=== PATIENT | female | born 1925 | race Caucasian/White ===

== ENCOUNTER → 2016-12-11 | Outpatient (CLI) | payer MEDICARE, OTHER ==
[~2016-12-11] VITALS: Ht 160 cm; Wt 75.0 kg
[2016-12-11] VITALS (11 sets, daily range): BP systolic 113–138; BP diastolic 52–70; PULSE 63–93; RESP 16; TEMP 97.1–98.1; O2SAT 92–99; Ht 160 cm; Wt 75.0 kg
[~2016-12-11] MED LIST: AMIO200T7 PO; AMLO10TA2 PO; AMLO5TAB2 PO; ANTI1CAP2 PO; APIX2.5T PO; ASPI-725 PO; ASPI-914 PO; CALC-52 PO; CHLO25TA2 PO; CLOP75TA PO; FOLI0.8T PO; IRON DEXTRAN 100mg/2ml INJECTION IV ONE; IRON DEXTRAN IV ONE; LINA5TAB PO; METF-47 PO; METO-275 PO; MULT-934 PO; MULT1TAB69 PO; NITR0.4T SL; NORMAL SALINE 500 ML IV SCH; NORMAL SALINE IV ONE; OMEG1CAP17 PO; OMEP40CA52 PO; PRAV40TA3 PO; RIVA1TAB; RIVA20TA PO; SUCR1TAB43 PO; TRAZ-170 PO; VIT1CAPS21 PO; [UNRECOGNIZED DRUG - CODE] PO
--- NOTE | 2016-12-11 10:00 | NUR ---
IV IRON CONSULT: Dx: Chronic Anemia: Will give TDI (Total Dose Infusion) over 4 hours. Actual body weight = 75kg Hgb Level = 10.7 g/dL Calculated Dosing weight = 52 kg Total dose needed: 1,300 mg (26 mL) Will give test dose of 25mg IV push over 30 seconds. Watch VS q 15 minutes x 1 hr. (watching for anaphylaxis, respiratory distress, hives.) If no reaction will give full dose in NS 500ml TRA 125ml/hr. Watch VS q 1 hr during infusion. Thank you.
== END ==
LOC: INF.THER 08:50
PROVIDERS: ATTEND Internal Medicine
DX: D50.9 Iron deficiency anemia, unspecified (principal)
CPT/HCPCS: 96365; 96366; 96375; J1750

== ENCOUNTER 2016-12-19 06:29 | Day surgery (SDC) | payer MEDICARE, OTHER ==
[2016-12-19] VITALS (17 sets, daily range): BP systolic 114–155; BP diastolic 54–67; PULSE 65–79; RESP 13–20; TEMP 97–97.9; O2SAT 91–100; Ht 166.4 cm; Wt 73.2 kg
[~2016-12-19] VITALS: Ht 166.4 cm; Wt 73.2 kg
[~2016-12-19 06:29] MED LIST changes: -AMIO200T7 PO; -AMLO10TA2 PO; -APIX2.5T PO; -ASPI-725 PO; -ASPI-914 PO; -CALC-52 PO; -CLOP75TA PO; -FOLI0.8T PO; -IRON DEXTRAN 100mg/2ml INJECTION IV ONE; -IRON DEXTRAN IV ONE; -MULT1TAB69 PO; -NITR0.4T SL; -NORMAL SALINE 500 ML IV SCH; -NORMAL SALINE IV ONE; -RIVA1TAB; -VIT1CAPS21 PO; -[UNRECOGNIZED DRUG - CODE] PO
--- OUTSIDE RECORDS SUMMARY | 2016-12-19 06:32 | XMS REPORT | Continuity of Care Document ---
Author Author [facility] Organization [facility] Address Unknown Phone Unavailable Support Name Relationship Address Phone SONIDO SEWELL DO Caregiver [facility] [address] [place] [phone] WILLIAM DESHPANDE Next Of Kin [address] [place], [place] [address] Insurance Providers Payer Name Policy Number Subscriber Name Relationship Medicare [id number] Ursula Perez 20 Self [place] [id number] Ursula Perez Self Advance Directives Directive Response Recorded Date/Time Ordered Resuscitation Status Full Code, unverified 08/24/14 10:13am Resuscitation Documents on File No 08/24/14 10:12am Problems No known problems or medical conditions. Medications Medication Dose Route Sig Days/Qty Instructions Order Date Discontinued Date Status Multivitamins 1 Tab PO DAILY 11/05/09 Active Prednisone 2 Mg PO DAILY 09/11/08 11/05/09 Discontinued Zolpidem Tartrate 5 Mg PO BEDTIME 11/05/09 12/19/11 Discontinued [Blood Pressure] 0.5 Tab PO DAILY 11/05/09 09/19/11 Discontinued Metformin Hcl 1,000 Mg PO TWICE A DAY 11/05/09 Active Calcium Carbonate 600 Mg PO TWICE A DAY 02/19/11 09/19/11 Discontinued Telmisartan 20 Mg PO DAILY 02/19/11 09/19/11 Discontinued Acetaminophen/Dp-Hydram Hcl 1 Tab PO BEDTIME 2 Qty 02/19/11 09/19/11 Discontinued Oseltamivir Phosphate 75 Mg PO TWICE A DAY 09/19/11 12/19/11 Discontinued Benzonatate 100 Mg PO NEEDED 09/19/11 12/19/11 Discontinued Aspirin 81 Mg PO DAILY 12/19/11 Active Sucralfate 1 G PO BEDTIME 11/26/12 Active Amlodipine Besylate 10 Mg PO DAILY 90 Qty 08/24/14 Active Omeprazole 40 Mg PO DAILY 90 Qty 08/24/14 Active [place]-3 Acid Ethyl Esters 2 Cap PO TWICE A DAY 340 Qty 08/24/14 Active Antiox#10/Om3/Dha/Epa/Lut/Zeax 1 Cap PO DAILY 08/24/14 Active Pravastatin Sodium 40 Mg PO BEDTIME 90 Qty 08/24/14 Active Social History Social History Problem Response Recorded Date/Time Chewing Tobacco Status No 11/26/2012 9:18am Hx Substance Use No 08/25/2014 7:24am Hx Alcohol Use No 08/25/2014 7:24am Has the pt used tobacco in the last 12 months No 08/25/2014 7:24am Query Response Start Date Stop Date Smoking Status Never smoker Hospital Discharge Instructions No hospital discharge instructions. Plan of Care No plan of care. Functional Status No functional status results. Allergies, Adverse Reactions, Alerts Allergen Type Severity Reaction Status Last Updated oxycodone HCl Adverse Reaction Intermediate ABDOMINAL PAIN Active 09/19/11 losartan potassium Allergy Unknown Active 02/19/11 Sulfa (Sulfonamide Antibiotics) Allergy Intermediate HIVES Active 09/11/08 Lisinopril Adverse Reaction Unknown COUGH Active 08/24/14 Morphine Allergy Intermediate red and hives all over Active 11/26/12 Aspirin Adverse Reaction Intermediate UPSETS STOMACH Active 09/11/08 Tetracycline Adverse Reaction Intermediate terrible pain in stomach Active 11/26/12 Sulfamethoxazole Allergy Intermediate hives Active 11/26/12 Trimethoprim Allergy Unknown Active 02/19/11 Simvastatin Allergy Unknown MYALGIA Active 08/24/14 Atorvastatin Allergy Unknown MYALGIA Active 08/24/14 Immunizations Name Given Type Hx Influenza Vaccination Y MAY 2014 Historical Hx Pneumococcal Vaccination Y -2009 Historical Hx Influenza Vaccination Y MAY 2014 Historical Vital Signs Acute Vital Signs Vital Response Date/Time Temperature (Fahrenheit) 97.0 deg F (96.8 - 99.1) Temperature (Calculated Celsius) 36.25724 degrees C (36.0 - 37.3) Temperature Source Temporal Pulse Rate (adult) 76 bpm (60 - 100) Respiratory Rate 16 breaths/min (10 - 20) O2 Sat by Pulse Oximetry 95 % (90 - 100) Oxygen Delivery Method Room Air Blood Pressure 149/66 mm Hg Blood Pressure Source Automatic Cuff Height 5 ft 3 in Weight 163 lb Body Mass Index 28.0 kg/m^2 Results Test Source Date Result Interp. Ref. Range Comments Alanine Aminotransferase (ALT/SGPT) November 25, 2012 4:24pm 59 U/L H 9-52 Albumin November 25, 2012 4:24pm 4.5 G/DL N 3.5-5.0 Albumin/Globulin Ratio November 25, 2012 4:24pm 1.4 RATIO N 1.1-2.2 Alkaline Phosphatase November 25, 2012 4:24pm 91 U/L N 38-126 Amylase Level November 25, 2012 4:24pm 68 U/L N 30-110 Anion Gap November 25, 2012 4:24pm 14 MEQ/L N 5-15 Aspartate Amino Transf (AST/SGOT) November 25, 2012 4:24pm 39 U/L H 14-36 BUN/Creatinine Ratio November 25, 2012 4:24pm 26 RATIO N 6-26 Basophils # (Auto) November 25, 2012 4:24pm 0.0 T/MM3 N 0-0.2 Basophils (%) (Auto) November 25, 2012 4:24pm 0.4 % N 0-2 Blood Urea Nitrogen November 25, 2012 4:24pm 21.0 MG/DL H 7-17 Calcium Level November 25, 2012 4:24pm 9.4 MG/DL N 8.4-10.2 Calculated Osmolality November 25, 2012 4:24pm 274 MOSM/KG N 261-280 Carbon Dioxide Level November 25, 2012 4:24pm 27 MEQ/L N 22-30 Chloride Level November 25, 2012 4:24pm 98 MEQ/L N 98-107 Creatinine November 25, 2012 4:24pm 0.8 MG/DL N 0.7-1.2 Eosinophils # (Auto) November 25, 2012 4:24pm 0.2 T/MM3 N 0-0.5 Eosinophils # (Manual) September 20, 2011 4:30am 0.1 T/MM3 N 0-0.5 Eosinophils % (Manual) September 20, 2011 4:30am 1.0 % N 0-4 Eosinophils (%) (Auto) November 25, 2012 4:24pm 1.8 % N 0-4 Globulin November 25, 2012 4:24pm 3.3 G/DL N 2.4-3.6 Glomerular Filtration Rate Calc November 25, 2012 4:24pm 68 - Glucometer August 25, 2014 7:16am 170 mg/dL H 65-110 Glucose Level November 25, 2012 4:24pm 157 MG/DL H 65-110 Hematocrit November 25, 2012 4:24pm 44.5 % N 36-46 Hemoglobin November 25, 2012 4:24pm 14.7 GM/DL N 12-16 Immature Granulocyte # (Auto) November 25, 2012 4:24pm 0.01 T/MM3 N 0.00- 0.03 Immature Granulocyte % (Auto) November 25, 2012 4:24pm 0.1 % N 0.0-0.5 Influenza Type A Antigen September 17, 2011 2:26pm Positive - This test can not distinguish influenza A virus subtypes,e.g., seasonal influenza A and novel influenza A (H1N1). Influenza Type B Antigen September 17, 2011 2:26pm Negative - Negative for Flu B protein antigen. Assay sensitivity isbetween 65-83%. A negative result does not exclude influenza virus infection. "Influenza FA" may be ordered if clinical presentation warrants confirmatory testing. Lab Scanned Report November 25, 2012 9:57pm LAB TEST FORM REQUEST [id number] - Lipase November 25, 2012 4:24pm 90 U/L N 23-300 Lymphocytes # (Auto) November 25, 2012 4:24pm 1.2 T/MM3 N 1-4.8 Lymphocytes # (Manual) September 20, 2011 4:30am 3.6 T/MM3 N 1-4.8 Lymphocytes % (Manual) September 20, 2011 4:30am 64.0 % H 23-45 Lymphocytes (%) (Auto) November 25, 2012 4:24pm 12.8 % L 23-45 Magnesium Level September 19, 2011 2:10pm 1.8 MG/DL N 1.6-2.3 Mean Corpuscular Hemoglobin November 25, 2012 4:24pm 29.8 UUG N 26-34 Mean Corpuscular Hemoglobin Concent November 25, 2012 4:24pm 33.0 GM/DL N 31-37 Mean Corpuscular Volume November 25, 2012 4:24pm 90.3 UM3 N 80-100 Mean Platelet Volume November 25, 2012 4:24pm 9.8 UM3 N 9.4-12.4 Monocytes # (Auto) November 25, 2012 4:24pm 0.5 T/MM3 N 0-0.8 Monocytes # (Manual) September 20, 2011 4:30am 0.3 T/MM3 N 0-0.8 Monocytes % (Manual) September 20, 2011 4:30am 5.0 % N 0-9.0 Monocytes (%) (Auto) November 25, 2012 4:24pm 5.0 % N 0-9.0 Neutrophils # (Auto) November 25, 2012 4:24pm 7.4 T/MM3 N 1.8-7.7 Neutrophils # (Manual) September 20, 2011 4:30am 1.6 T/MM3 L 1.8-7.7 Neutrophils % (Manual) September 20, 2011 4:30am 29.0 % L 33-66 Neutrophils (%) (Auto) November 25, 2012 4:24pm 79.9 % H 33-66 Plasma Cells September 20, 2011 4:30am 0.1 T/MM3 - Platelet Count November 25, 2012 4:24pm 263 T/MM3 N 130-400 Potassium Level November 25, 2012 4:24pm 4.1 MEQ/L N 3.6-5 Prealbumin September 19, 2011 2:10pm 18.0 MG/DL N 17.6-36.0 RDW Standard Deviation November 25, 2012 4:24pm 40.8 FL N 36.9-50.2 Red Blood Count November 25, 2012 4:24pm 4.93 M/MM3 N 4.00-5.20 Sodium Level November 25, 2012 4:24pm 139 MEQ/L N 134-144 Thyroid Stimulating Hormone (TSH) February 19, 2011 2:35pm 0.93 MIU/L N 0.47 -4.68 Total Bilirubin November 25, 2012 4:24pm 0.60 MG/DL N 0.20-1.30 Total Creatine Kinase August 14, 2011 2:13pm 33 U/L N 30-135 Total Protein November 25, 2012 4:24pm 7.8 G/DL N 6.3-8.2 Urine Bilirubin February 19, 2011 1:45pm Negative - Has specimen been collected/obtained? Y Urine Blood February 19, 2011 1:45pm Negative - Has specimen been collected/obtained? Y Urine Collection Type February 19, 2011 1:45pm Voided - Has specimen been collected/obtained? Y Urine Color February 19, 2011 1:45pm Yellow - Has specimen been collected /obtained? Y Urine Glucose (UA) February 19, 2011 1:45pm Negative - Has specimen been collected/obtained? Y Urine Ketones February 19, 2011 1:45pm Negative - Has specimen been collected/obtained? Y Urine Leukocyte Esterase February 19, 2011 1:45pm Negative - Has specimen been collected/obtained? Y Urine Microscopic Not Indicated February 19, 2011 1:45pm Not indicated - Has specimen been collected/obtained? Y Urine Mucus September 11, 2008 12:16pm Present - Has specimen been collected/obtained? Y Urine Nitrite February 19, 2011 1:45pm Negative - Has specimen been collected/obtained? Y Urine Protein February 19, 2011 1:45pm Negative - Has specimen been collected/obtained? Y Urine RBC September 11, 2008 12:16pm 0-1 /HPF - Has specimen been collected/obtained? Y Urine Specific [place] February 19, 2011 1:45pm 1.015 - Has specimen been collected/obtained? Y Urine Turbidity February 19, 2011 1:45pm Clear - Has specimen been collected/obtained? Y Urine Urobilinogen February 19, 2011 1:45pm Normal EU/DL - Has specimen been collected/obtained? Y Urine WBC September 11, 2008 12:16pm 1-3 /HPF - Has specimen been collected/obtained? Y Urine pH February 19, 2011 1:45pm 5.0 - Has specimen been collected/ obtained? Y Vitamin B12 Level February 19, 2011 2:35pm 464 PG/ML N 239-931 White Blood Count November 25, 2012 4:24pm 9.3 T/MM3 N 4.5-11.0 Blood Culture Blood September 19, 2011 2:10pm NO GROWTH AFTER 5 DAYS Gram Stain Finger-Right Ring May 11, 2008 7:23pm Procedures Procedure Status Date Provider(s) Esophagogastroduodenoscopy (EGD) with closed biopsy completed 08/25/14 SONIDO SEWELL DO
[2016-12-19] MEDS ORDERED: LR 1,000 ML IV SCH (07:00)
[2016-12-19] MEDS ORDERED: LIDOCAINE 1% (10mg/ml) 2ml SDV INJ ONE (07:00)
[2016-12-19] MEDS ORDERED: SALINE FLUSH 10ml SYRINGE ONE (08:34)
[2016-12-19] MEDS ORDERED: MIDAZOLAM 5mg/5ml INJECTION ONE ×2 (08:34→08:59)
[2016-12-19] MEDS ORDERED: FENTANYL 100mcg/2ml INJECTION ONE (08:34)
[2016-12-19] MEDS ORDERED: MIDAZOLAM 5mg/5ml INJECTION IV PRN (08:48)
[2016-12-19] MEDS ORDERED: FENTANYL 100mcg/2ml INJECTION IV PRN (08:50)
[2016-12-19] MEDS ORDERED: GLUCAGON 1 MG INJECTION ONE (09:25)
[2016-12-19] MEDS ORDERED: .STERILE WATER FOR INJECTION 10 ML ONE (09:25)
[2016-12-19] MEDS ORDERED: GLUCAGON 1 MG INJECTION IV PRN (09:30)
--- NOTE | 2016-12-19 13:23 | OPNOTEF ---
DATE OF PROCEDURE: 12/19/2016 PHYSICIAN: Clark Schrader DO PROCEDURE: Colonoscopy. INDICATION FOR PROCEDURE Blood loss anemia. ASA CLASSIFICATION: 2 DESCRIPTION OF PROCEDURE Consent was signed and on the chart. Routine monitoring with ECG, continuous oximetry and noninvasive blood pressure was performed throughout the procedure and found to be within normal limits. IV sedation was performed with a total of 9 mg of Versed and 90 mcg of fentanyl. She was also given one amp of glucagon. Prior to the procedure the patient was brought to the endoscopy lab where a brief review of her medical history and physical was performed. The procedure was described to her and she was agreeable to continue. All questions were answered. She was given IV sedation and placed in the left lateral decubitus position. A digital rectal exam was normal. The colonoscope was introduced through the anal verge and advanced to the cecum. Upon reaching the cecum careful examination of the mucosa was performed. Right across from the ileocecal valve there was a polyp that was biopsied and then removed with snare. Also, in the ascending colon another polyp was removed. A proximal transverse colon polyp was biopsied and removed with snare and also another was removed at the mid transverse colon. The remainder of her exam was unremarkable except for diverticulosis in the descending and sigmoid colon. No evidence of active bleeding. She tolerated the procedure well. There were no complications. IMPRESSION Polyps removed from area across from the ileocecal valve, ascending colon, proximal transverse colon and transverse colon. She also had diverticulosis at the descending and sigmoid colon. RECOMMENDATION 1. Review the pathology report. 2. Consider EGD or video capsule endoscopy of the small bowel. MTDD
[2016-12-19] MEDS ORDERED: AMLO10TA2 PO (20:28)
== END 2016-12-19 10:22 | disposition home or self-care (01) ==
LOC: NSC 06:29
PROVIDERS: ATTEND Internal Medicine
DX: D12.3 Benign neoplasm of transverse colon (principal); D12.0 Benign neoplasm of cecum; K57.30 Diverticulosis of large intestine without perforation or abscess without bleeding; D50.0 Iron deficiency anemia secondary to blood loss (chronic); R14.0 Abdominal distension (gaseous); K59.00 Constipation, unspecified; E11.9 Type 2 diabetes mellitus without complications; K21.9 Gastro-esophageal reflux disease without esophagitis; M48.06 Spinal stenosis, lumbar region; E78.4 Other hyperlipidemia; Z79.84 Long term (current) use of oral hypoglycemic drugs; Z79.02 Long term (current) use of antithrombotics/antiplatelets; Z79.899 Other long term (current) drug therapy
CPT/HCPCS: 45385; 82948; J1610; J2250; J3010; J7120

== ENCOUNTER 2016-12-19 20:04 | Emergency (ER) | payer MEDICARE, OTHER ==
[~2016-12-19] VITALS: Ht 165.1 cm; Wt 68.2 kg
[2016-12-19 20:04] VITALS: Ht 165.1 cm; Wt 68.2 kg
--- OUTSIDE RECORDS SUMMARY | 2016-12-19 20:08 | XMS REPORT | Continuity of Care Document ---
Author Author [facility] Organization [facility] Address Unknown Phone Unavailable Support Name Relationship Address Phone SONIDO SEWELL DO Caregiver [facility] [address] [place] [phone] WILLIAM DESHPANDE Next Of Kin [address] [place], [place] [id number] Insurance Providers Payer Name Policy Number Subscriber Name Relationship Medicare [id number] Ursula Perez 20 Self [place] [id number] Ursula Perez Self Advance Directives Directive Response [...] Mg PO DAILY 90 Qty 08/24/14 Active [place]-3 Acid Ethyl Esters 2 Cap PO TWICE [...] F (96.8 - 99.1) Temperature (Calculated Celsius) 36.09515 degrees C (36.0 - 37.3) Temperature Source [...] 25, 2012 9:57pm LAB TEST FORM REQUEST [id number] - Lipase November 25, 2012 4:24pm 90 [...] Has specimen been collected/obtained? Y Urine Specific [place] February 19, 2011 1:45pm 1.015 - Has [...]
--- OUTSIDE RECORDS SUMMARY | 2016-12-19 20:08 | XMS REPORT | Continuity of Care Document ---
Author Author [facility] Organization [facility] Address Unknown Phone Unavailable Support Name Relationship Address Phone SONIDO SEWELL DO Caregiver [address] [place] [address] Unavailable SONIDO SEWELL DO Caregiver [address] [place] [address] Unavailable WILLIAM DESHPANDE Next Of Kin [address] [id number] Insurance Providers Guarantor Ursula Hwang E Address [address] [place] [address] Email [email or web address] Payer [place] Policy Number [id number] Subscriber's Name Ursula Hwang Relationship 18 Self Group Number [facility] Payer Medicare Policy Number [id number] Subscriber's Name Ursula Hwang Relationship 18 Self Advance Directives Directive Response Recorded Date/Time Ordered Resuscitation Status Full Code, unverified 12/18/16 2:52pm Resuscitation Documents on File No 12/19/16 7:08am DPOA for Healthcare Only No 12/19/16 7:08am Living Will No 12/19/16 7:08am Problems No problem information available. Medications Current Home Medications Medication Dose Units Route Directions Days Qty Instructions Start Date Amlodipine Besylate 5 Mg Tablet 5 Mg Oral Daily 12/18/16 Antiox#10/Om3/Dha/Epa/Lut/Zeax (I-Caps With Lutein-[place] 3 Sfg) 1 Each Capsule 1 Cap Oral Daily 08/24/14 Chlorthalidone 25 Mg Tablet 1 Tab Oral Give With Breakfast BEST TAKEN WITH FOOD. 12/11/16 Linagliptin (Tradjenta) 5 Mg Tablet 1 Tab Oral Daily 12/18/16 Metformin Hcl (Glucophage) 500 Mg Tablet 1,000 Mg Oral Twice A Day 11/05/09 Metoprolol Succinate 25 Mg Tab.er.24h 25 Mg Oral Daily 12/11/16 Multivitamins (Multi-Day Vitamin) 1 Tab Tablet 1 Tab Oral Daily 11/05/09 [place]-3 Acid Ethyl Esters (Lovaza) 1 Gm Capsule 2 Cap Oral Twice A Day 12/18/16 Omeprazole 40 Mg Capsule.dr 40 Mg Oral Daily 08/24/14 Pravastatin Sodium 40 Mg Tablet 40 Mg Oral Bedtime 90 08/24/14 Rivaroxaban (Xarelto) 20 Mg Tablet 1 Tab Oral Bedtime 30 Tablet 09/28 Sucralfate (Carafate) 1 G Tablet 1 G Oral Bedtime 11/26/12 Trazodone Hcl 50 Mg Tablet 50 Mg Oral Bedtime Take 1 tablet, by mouth, one time a day (at BEDTIME). 12/18/16 Past Home Medications Medication Directions Ordered Status Acetaminophen/Dp-Hydram Hcl (Tylenol Pm Ex-Str Caplet) 1 Tab Tablet, 1 Tab Oral Bedtime 02/19/11 Discontinued Amlodipine Besylate 10 Mg Tablet, 10 Mg Oral Daily 08/24/14 Discontinued Benzonatate 100 Mg Capsule, 100 Mg Oral As Needed 09/19/11 Discontinued Blood Pressure , 0.5 Tab Oral Daily 11/05/09 Discontinued Calcium Carbonate (Calcium) 600 Mg Tablet, 600 Mg Oral Twice A Day 02/19/11 Discontinued Oseltamivir Phosphate (Tamiflu) 75 Mg Capsule, 75 Mg Oral Twice A Day Discontinued Prednisone 1 Mg Tablet, 2 Mg Oral Daily 09/11/08 Discontinued Telmisartan (Micardis) 20 Mg Tablet, 20 Mg Oral Daily 02/19/11 Discontinued Zolpidem Tartrate (Ambien) 5 Mg Tablet, 5 Mg Oral Bedtime 11/05/09 Discontinued Social History Social History Problem Response Recorded Date/Time Onset Date Status Reason for Hospitalization COLONOSCOPY 12/19/2016 9:49am Not Applicable Not Applicable Chewing Tobacco Status No 11/26/2012 9:18am Not Applicable Not Applicable Hx Substance Use No 08/25/2014 7:24am Not Applicable Not Applicable Hx Alcohol Use No 08/25/2014 7:24am Not Applicable Not Applicable Has the pt used tobacco in the last 12 months No 08/25/2014 7:24am Not Applicable Not Applicable Query Response Start Date Stop Date Smoking Status Never smoker Hospital Discharge Instructions Instructions: Care Instructions: I was in the hospital because (patient own words): "COLONOSCOPY" Plan of Care Discharge Date 12/19/16 10:22am Instructions/Education Provided [facility] Services Prescriptions See Medication Section Functional Status Query Response Date Recorded Ability to complete ADL's impeded by No change December 19, 2016 7:08am Allergies, Adverse Reactions, Alerts Allergen Type Severity Reaction Status Last Updated oxycodone HCl Adverse Reaction Intermediate ABDOMINAL PAIN Active 12/19/16 losartan potassium Allergy Unknown Active 12/19/16 Sulfa (Sulfonamide Antibiotics) Allergy Intermediate HIVES Active 12/19/16 Lisinopril Adverse Reaction Unknown COUGH Active 12/19/16 Morphine Allergy Intermediate red and hives all over Active 12/19/16 Aspirin Adverse Reaction Intermediate UPSETS STOMACH Active 12/19/16 Tetracycline Adverse Reaction Intermediate terrible pain in stomach Active 12/19/16 Sulfamethoxazole Allergy Intermediate hives Active 12/19/16 Trimethoprim Allergy Unknown Active 12/19/16 Simvastatin Allergy Unknown MYALGIA Active 12/19/16 Atorvastatin Allergy Unknown MYALGIA Active 12/19/16 Immunizations Query Response on File Recorded Date/Time Hx Influenza Vaccination Y fall 201512/11/16 11:43am Hx Pneumococcal Vaccination Y fall 201512/11/16 11:43am Hx Influenza Vaccination Y fall 201512/11/16 11:43am Vital Signs Acute Vital Signs Vital Response Date/Time Temperature (Fahrenheit) 97.1 deg F (96.8 - 99.1) 12/19/2016 10:19am Temperature (Calculated Celsius) 36.13383 degrees C (36.0 - 37.3) 12/19/2016 10:19am Temperature Source Temporal 12/19/2016 10:19am Pulse Rate (adult) 70 bpm (60 - 100) 12/19/2016 10:19am Respiratory Rate 13 breaths/min (10 - 20) 12/19/2016 10:19am O2 Sat by Pulse Oximetry 92 % (90 - 100) 12/19/2016 10:19am Oxygen Delivery Method Mask 12/19/2016 8:40am Oxygen Delivery Method Room Air 12/19/2016 10:19am Oxygen Flow Rate 6.00 L/min 12/19/2016 8:40am Blood Pressure 128/56 mm Hg 12/19/2016 10:19am Blood Pressure Source Automatic Cuff 12/19/2016 10:19am Height (Feet) 5 feet 12/19/2016 6:49am Height (Inches) 5.50 inches 12/19/2016 6:49am Weight (Kilograms) 73.200 kg 12/19/2016 6:49am Body Mass Index (BMI) 26.5 12/19/2016 6:49am Results Laboratory Results Test Name Result Units Flags Reference Collection Date/Time Result Date/ Time Comments Glucometer 123 mg/dL H 65-110 12/19/2016 6:45am 12/19/2016 6:49am Procedures Procedure Status Date Provider(s) Colonoscopy with polypectomy and biopsy Completed 12/19/16 SONIDO SEWELL DO Encounters Encounter Location Arrival/Admit Date Discharge/Depart Date Attending Provider Departed [facility] 12/19/16 6:29am 12/19/16 10 :22am SONIDO SEWELL DO [facility] 12/11/16 8:50am SONIDO SEWELL DO
[2016-12-19] MEDS ORDERED: NORMAL SALINE 1,000 ML IV ONE (20:15)
--- OUTSIDE RECORDS SUMMARY | 2016-12-19 20:20 | XMS REPORT | Continuity of Care Document ---
Author Author [facility] Organization [facility] Address Unknown Phone Unavailable Support Name Relationship Address Phone SONIDO SEWELL DO Caregiver [facility] [address] [place] [phone] WILLIAM DESHPANDE Next Of Kin [address] [place], [place] [id number] Insurance Providers Payer Name Policy Number Subscriber Name Relationship Medicare [id number] Ursula Perez 20 Self [place] [id number] Ursula Perez Self Advance Directives Directive Response [...] Mg PO DAILY 90 Qty 08/24/14 Active [place]-3 Acid Ethyl Esters 2 Cap PO TWICE [...] F (96.8 - 99.1) Temperature (Calculated Celsius) 36.70658 degrees C (36.0 - 37.3) Temperature Source [...] 25, 2012 9:57pm LAB TEST FORM REQUEST [id number] - Lipase November 25, 2012 4:24pm 90 [...] Has specimen been collected/obtained? Y Urine Specific [place] February 19, 2011 1:45pm 1.015 - Has [...]
--- NOTE | 2016-12-19 20:21 | ERPDOC ---
Departure Disposition Decision Date: December 19, 2016 Disposition Decision Time: 21:13 Disposition: 01 DISCHARGED HOME, SELF-CARE Impression Impression Impression: Primary Impression: Dehydration Additional Impression: Palpitation Severity: Moderate Condition: Improved Seen By: Physician only Referrals: SONIDO SEWELL DO (Family) Patient Instructions: Dehydration (ED) Problems/Meds/Labs Reviewed?: Yes Medications reviewed and manag: Yes Additional Instructions: Drink at least 2 quarts of fluid daily Return to ER or see Dr. Sewell's office for any worsening Follow up care ordered?: Yes Mental Status: Alert HPI - Cardiac General Stated Complaint: DIZZY Time Seen by Provider: 20:08 Source: patient Exam Limitations: no limitations HPI - Cardiac General Initial Comments Patient had a colonoscopy today, had an extended bowel prep last night, and did well during her colonoscopy today. However when she got home, she began experiencing several episodes of significant dizziness, lightheadedness, and a feeling of fluttering palpitations in her chest. Patient has a history of atrial fibrillation, and is similar symptoms when she has A. fib. Occurred At: home Onset/Timing: Rapid Duration: 6-12 hrs Severity: moderate Activities at Onset/Context: none Nitro Today/Relief: no nitro taken today Aspirin Today: unknown Associated Symptoms: weakness, DENIES: chest pain, cough, diaphoresis, fever/ chills, headaches, loss of appetite, malaise, nausea/vomiting, rash, seizure, shortness of breath, syncope Hx of Similar Symptoms: Yes Allergies: Coded Allergies: Sulfa (Sulfonamide Antibiotics) (Verified Allergy, Intermediate, HIVES, 05/28) morphine (Verified Allergy, Intermediate, red and hives all over, 12/19/16) sulfamethoxazole (Verified Allergy, Intermediate, hives, 12/19/16) atorvastatin (Unverified Allergy, Unknown, MYALGIA, 12/19/16) losartan potassium (Verified Allergy, Unknown, 12/19/16) simvastatin (Unverified Allergy, Unknown, MYALGIA, 12/19/16) trimethoprim (Verified Allergy, Unknown, 12/19/16) aspirin (Verified Adverse Reaction, Intermediate, UPSETS STOMACH, 12/19/16) oxycodone HCl (Verified Adverse Reaction, Intermediate, ABDOMINAL PAIN, 05/28) tetracycline (Verified Adverse Reaction, Intermediate, terrible pain in stomach, 12/19/16) lisinopril (Verified Adverse Reaction, Unknown, COUGH, 12/19/16) Past History Past Medical History Metabolic: diabetes, hypercholesterolemia, hypertension Cardiac: A-fib, CAD GI: ulcers Surgical History General: appendix, gallbladder, tonsils Reproductive/: hysterectomy Vaccines Hx Influenza Vaccination: Yes (fall 2015) Hx Pneumococcal Vaccination: Yes (fall 2015) Social History Smoking Status: Never smoker Does patient use chewing tobac: No Second Hand Exposure: No Substance Use Type: does not use Record Review Pertinent history updated: Yes Review of Systems Constitutional Constitutional: dizziness, fatigue, DENIES: appetite decrease, appetite increase, chills, fever, weakness ENMT Ears: DENIES: pain Hearing: DENIES: hearing loss, tinnitus Balance: DENIES: vertigo Mouth/Throat: DENIES: change in swallowing, change in voice, hoarsness, painful swallowing, sore throat Cardiovascular Cardiac: DENIES: chest pain, dyspnea on exertion Rhythm/Rate: palpitations ("fluttering"), DENIES: irregular beat, tachycardia Vascular: DENIES: pedal edema Pulmonary Respiratory: DENIES: cough, dyspnea, pleuritic chest pain GI Upper Abdomen: DENIES: dysphagia, heartburn/indigestion, nausea, pain, vomiting Lower Abdomen: DENIES: blood in stool, constipation, diarrhea, pain General: DENIES: burning, dysuria, frequency, pain, urgency Musculoskeletal General: DENIES: cramps, joint pain, joint swelling, pain, weakness Integumentary Skin: DENIES: rash, sores Neurological General: DENIES: headache, numbness, tingling, vertigo, weakness Psychiatric Psychiatric: DENIES: anxiety, depression, nervousness Physical Exam General General Nourishment: well nourished, well developed, appears stated age, no acute distress General Body Habitus: well groomed Vitals and Pain First Documented Vital Signs Date Time Temp Pulse Resp B/P Pulse Ox O2 Delivery O2 Flow Rate FiO2 12/19/16 20:04 97.7 90 12 179/74 96 Room Air Weight: Kilograms: Height (feet): 5 Height (inches): 5.50 Triage Pain Scale: RN VS reviewed by Provider: Yes Normal Exams: Head: Normocephalic w/o trauma Eyes: Pupils are PERRLA w/ EOMI, No scleral icterus, irritation, or foreign bodies noted ENMT: No facial trauma, nasal exudates, pharyngeal erythema, or exudates are noted Neck: Full range of motion, without adenopathy, JVD, bruits or thyromegaly Chest/Resp: Clear all mcelroy, with good airflow, and symmetry bilaterally CV: Regular rate and rhythm, without murmur or gallop, Pulses 2+ all extremities, capillary refill, <2 seconds all ext., no pedal edema noted Abdomen: Bowel sounds positive, soft, non-tender, non-distended, no hepatosplenomegaly, masses or bruits noted Lymphatic: No lymphadenopathy, or lymphedema noted Musculoskeletal: No tenderness, or deformity noted, good range of motion, all extremities Integumentary: No rashes, hives, or bruising noted, hair and nails, without abnormality Neurologic: Patient is alert, and oriented, cranial nerves, motor/sensory/ cerebellar, exams w/o gross deficits, to observation Psychiatric: Patient exhibits, appropriate attention, emotion and affect Progress Results/Orders Orders Procedure Category Date Status Time Iv Lock (Ed Only) EDM 12/19/16 Transmitted 20:15 Cbc W/Auto LAB 12/19/16 Complete Diff-Reflex Manual Cmp - Comprehensive LAB 12/19/16 Complete Metabolic Troponin I W LAB 12/19/16 Complete Hemolysis Index EKG EKG 12/19/16 Taken Normal Saline (Normal PHA 12/19/16 Complete Saline Iv) 20:15 Lab Results Laboratory Tests Test 12/19/16 20:27 White Blood Count 9.4T/MM3 Red Blood Count 4.60M/MM3 Hemoglobin 11.3GM/DL Hematocrit 35.8% Mean Corpuscular Volume 77.8UM3 Mean Corpuscular Hemoglobin 24.6UUG Mean Corpuscular Hemoglobin Concent 31.6GM/DL RDW Standard Deviation 48.0FL Platelet Count 346T/MM3 Mean Platelet Volume 10.6UM3 Immature Granulocyte % (Auto) 0.3% Neutrophils (%) (Auto) 57.3% Lymphocytes (%) (Auto) 29.4% Monocytes (%) (Auto) 9.6% Eosinophils (%) (Auto) 2.3% Basophils (%) (Auto) 1.1% Absolute Immature Granulocyte (auto 0.03T/MM3 Absolute Neutrophils (auto) 5.4T/MM3 Absolute Lymphocytes (auto) 2.8T/MM3 Absolute Monocytes (auto) 0.9T/MM3 Absolute Eosinophils (auto) 0.2T/MM3 Absolute Basophils (auto) 0.1T/MM3 Turbidity < 20 Sodium Level 140MEQ/L Potassium Level 3.5MEQ/L Chloride Level 98MEQ/L Carbon Dioxide Level 28MEQ/L Anion Gap 14MEQ/L Blood Urea Nitrogen 17.0MG/DL Creatinine 0.9MG/DL Glomerular Filtration Rate Calc 59 BUN/Creatinine Ratio 19RATIO Glucose Level 152MG/DL Calculated Osmolality 274MOSM/KG Calcium Level 9.9MG/DL Total Bilirubin 0.30MG/DL Icterus Index < 2 Aspartate Amino Transf (AST/SGOT) 47U/L Alanine Aminotransferase (ALT/SGPT) 59U/L Alkaline Phosphatase 102U/L Troponin I < 0.012ng/ml Total Protein 7.4G/DL Albumin 4.3G/DL Globulin 3.1G/DL Albumin/Globulin Ratio 1.4RATIO Chemistry Specimen Hemolysis < 15 Medications Current ED Medications Sodium Chloride (Normal Saline IV) 1,000 ml @ 0 mls/hr Q0M ONCE IV ; Start 05/28 at 20:15; Stop 12/19/16 at 20:16; Status DC Progress Progress EKG shows normal sinus rhythm with a right bundle branch block, no signs of acute ischemia or infarction. CBC - n CMP - n Troponin - n Patient given 1 L normal saline IV fluid bolus - patient feeling much better, no further palpitations or fluttering sensations, and lightheadedness has resolved SONIDO CATALAN MD December 19, 2016 20:21
[2016-12-19] MEDS ORDERED: AMLO10TA2 PO (20:28)
[2016-12-19 20:42] LABS: ALBUMIN 4.3 G/DL (3.5-5.0); ALBUMIN/GLOBULIN RATIO 1.4 RATIO (1.1-2.2); ALKALINE PHOSPHATASE 102 U/L (38-126); ALT (SGPT) 59 U/L (9-52); ANION GAP 14 MEQ/L (5-15); AST (SGOT) 47 U/L (14-36); BUN/CREATININE RATIO 19 RATIO (6-26); CALCIUM 9.9 MG/DL (8.4-10.2); CHLORIDE 98 MEQ/L (98-107); CO2 - CARBON DIOXIDE 28 MEQ/L (22-30); CREATININE 0.9 MG/DL (0.7-1.2); GLOMERULAR FILTRATION RATE 59; GLUCOSE 152 MG/DL (65-110); POTASSIUM 3.5 MEQ/L (3.6-5); SODIUM 140 MEQ/L (134-144); TOTAL PROTEIN 7.4 G/DL (6.3-8.2)
[2016-12-19 20:46] LABS: BASOPHILS # (AUTO) 0.1 T/MM3 (0-0.2); BASOPHILS % (AUTO) 1.1 % (0-2); EOSINOPHILS # (AUTO) 0.2 T/MM3 (0-0.5); EOSINOPHILS % (AUTO) 2.3 % (0-4); HCT - HEMATOCRIT 35.8 % (36-46); HGB - HEMOGLOBIN 11.3 GM/DL (12-16); IMMATURE GRANULOCYTE # (AUTO) 0.03 T/MM3 (0.00-0.03); IMMATURE GRANULOCYTE % (AUTO) 0.3 % (0.0-0.5); LYMPHOCYTES # (AUTO) 2.8 T/MM3 (1-4.8); LYMPHOCYTES % (AUTO) 29.4 % (23-45); MEAN CORPUSCULAR HGB 24.6 UUG (26-34); MEAN CORPUSCULAR HGB CONC(MCHC 31.6 GM/DL (31-37); MEAN CORPUSCULAR VOLUME 77.8 UM3 (80-100); MEAN PLATELET VOLUME 10.6 UM3 (9.4-12.4); MONOCYTES # (AUTO) 0.9 T/MM3 (0-0.8); MONOCYTES % (AUTO) 9.6 % (0-9.0); NEUTROPHILS #(AUTO)-ABSOLUTE 5.4 T/MM3 (1.8-7.7); NEUTROPHILS % (AUTO) 57.3 % (33-66); WBC - WHITE BLOOD COUNT 9.4 T/MM3 (4.5-11.0)
--- NOTE | 2016-12-19 21:08 | NUR ---
STATUS PT STATES "I FEEL MUCH BETTER." PT DENIES DIZZINESS AT PRESENT. PT VISITING WITH FAMILY AT BEDSIDE.
--- NOTE | 2016-12-19 21:10 | NUR ---
DR DR CATALAN AT BEDSIDE.
--- NOTE | 2016-12-19 21:34 | NUR ---
MONITOR REVIEW MONITOR PLACE AT ADMISSION TO ER. NOTED RATE 70'S WITH FREQUENT PVC, COUPLET. FEQUENCY LESSONED STAY INCREASED.
--- NOTE | 2016-12-19 21:37 | NUR ---
DISMISS PT ASSISTED TO PRIVATE VEHICLE VIA WC BY THIS RN.
[2016-12-19 22:01] VITALS: BP 152/66; PULSE 75; RESP 16; TEMP 97.7; O2SAT 94
== END 2016-12-19 21:37 | disposition home or self-care (01) ==
LOC: ED 20:04
DX: E86.0 Dehydration (principal); R00.2 Palpitations; I10 Essential (primary) hypertension; I48.91 Unspecified atrial fibrillation; Z79.01 Long term (current) use of anticoagulants
CPT/HCPCS: 80053; 84484; 85025; 93005

== ENCOUNTER 2016-12-27 11:00 | Inpatient (IN) | payer MEDICARE, OTHER ==
[~2016-12-27] VITALS: Ht 162.6 cm; Wt 71.2 kg
[~2016-12-27 11:00] MED LIST changes: +AMLO10TA2 PO; +ASPI-725 PO; +RIVA1TAB; +[UNRECOGNIZED DRUG - CODE] PO
--- OUTSIDE RECORDS SUMMARY | 2016-12-27 11:04 | XMS REPORT | Continuity of Care Document ---
Author Author [facility] Organization [facility] Address Unknown Phone Unavailable Support Name Relationship Address Phone SONIDO CATALAN MD Caregiver [address] [place] [address] Unavailable SONIDO SEWELL DO Caregiver [address] [place] [address] Unavailable WILLIAM DESHPANDE Next Of Kin [address] [place] [address] Insurance Providers Guarantor Ursula Perez E Address [address] [place] [address] Email [email or web address] Payer [place] Policy Number [id number] Subscriber's Name Ursula Perez Relationship 18 Self Group Number [facility] Payer Medicare Policy Number [id number] Subscriber's Name Ursula Perez Relationship 18 Self Advance Directives Directive Response Recorded Date/Time Advanced Directives Type None 12/19/16 8:04pm Chief Complaint and Reason for Visit Chief Complaint Dizzy Reason for Visit Palpitation Dehydration Problems Past Problems Medical Problem Onset Date Dehydration Unknown Palpitation Unknown Medications Current Home Medications Medication Dose Units Route Directions Days Qty Instructions Start Date Amlodipine Besylate 10 Mg Tablet 5 Mg Oral Daily 12/19/16 Chlorthalidone 25 Mg Tablet 25 Mg Oral Daily 12/11/16 Linagliptin (Tradjenta) 5 Mg Tablet 5 Mg Oral Daily 12/18/16 Metformin Hcl (Glucophage) 500 Mg Tablet 1,000 Mg Oral Twice A Day 11/05/09 Metoprolol Succinate 25 Mg Tab.er.24h 25 Mg Oral Daily 12/11/16 [place]-3 Acid Ethyl Esters (Lovaza) 1 Gm Capsule 2 Cap Oral Twice A Day 12/18/16 Omeprazole 40 Mg Capsule.dr 40 Mg Oral Daily 08/24/14 Pravastatin Sodium 40 Mg Tablet 40 Mg Oral Bedtime 08/24/14 Rivaroxaban (Xarelto) 20 Mg Tablet 20 Mg Oral Bedtime 12/11/16 Sucralfate (Carafate) 1 G Tablet 1 G Oral Bedtime 11/26/12 Trazodone Hcl 50 Mg Tablet 50 Mg Oral Bedtime 12/18/16 Past Home Medications Medication Directions Ordered [...] Problem Response Recorded Date/Time Onset Date Status Chewing Tobacco Status No 11/26/2012 9:18am Not Applicable Not Applicable Hx Substance Use No 12/19/2016 8:32pm Not Applicable Not Applicable Hx Alcohol Use No 12/19/2016 8:32pm Not Applicable Not Applicable Has the pt used tobacco in the last 12 months No 08/25/2014 7:24am Not Applicable Not Applicable Query Response Start Date Stop Date Smoking Status Never smoker Hospital Discharge Instructions No hospital discharge instructions. Plan of Care Discharge Date 12/19/16 9:37pm Disposition 01 DISCHARGED HOME, SELF-CARE Condition at Discharge Improved Instructions/Education Provided Dehydration (ED) Prescriptions See Medication Section Referrals SONIDO SEWELL DO Address: [address] [place] [phone] Additional Instructions/Education Drink at least 2 quarts of fluid daily Return to ER or see Dr. Sewell's office for any worsening Care Plan and Goals Physician Care Plan Problem: Dehydration after her colonoscopy prep Goal: Follow up with primary care provider Instructions: Take medications and follow care plan as discussed/writtenFOLLOW-UP CARE FOR PATIENT WITH NO LOCAL PRIMARY PHYSICIAN Drink at least 2 quarts of fluid daily Return to ER or see Dr. Sewell's office for any worsening The physician you have been referred to is Dr. []. He/She will see you in follow-up if you have problems related to the condition you were seen for in the Emergency or if the Emergency Department physician has requested you be seen in follow-up. The physician has not agreed to assume your care as a permanent part of his/her medical practice. Contact with the above physician's office must be made within 72 hours by 5 p.m. or his/her service will not be provided. We encourage you to establish yourself with a personal physician in the future. Functional Status No functional status results. Allergies, [...] Vital Signs Vital Response Date/Time Temperature (Fahrenheit) 97.7 deg F (96.8 - 99.1) 12/19/2016 10:01pm Temperature (Calculated Celsius) 36.43328 degrees C (36.0 - 37.3) 12/19/2016 10:01pm Temperature Source Temporal 12/19/2016 10:19am Pulse Rate (adult) 75 bpm (60 - 100) 12/19/2016 10:01pm Respiratory Rate 16 breaths/min (10 - 20) 12/19/2016 10:01pm O2 Sat by Pulse Oximetry 94 % (90 - 100) 12/19/2016 10:01pm Oxygen Delivery Method Mask 12/19/2016 8:40am Oxygen Delivery Method Room Air 12/19/2016 10:19am Oxygen Flow Rate 6.00 L/min 12/19/2016 8:40am Blood Pressure 152/66 mm Hg 12/19/2016 10:01pm Blood Pressure Source Automatic Cuff 12/19/2016 10:19am Height (Feet) 5 feet 12/19/2016 8:04pm Height (Inches) 5.00 inches 12/19/2016 8:04pm Weight (Kilograms) 68.200 kg 12/19/2016 8:04pm Body Mass Index (BMI) 25.0 12/19/2016 8:04pm Results Laboratory Results Test Name Result Units Flags Reference Collection Date/Time Result Date/ Time Comments Glucometer 123 mg/dL H 65-110 12/19/2016 6:45am 12/19/2016 6:49am White Blood Count 9.4 T/MM3 4.5-11.0 12/19/2016 8:27pm 12/19/2016 8: 46pm Red Blood Count 4.60 M/MM3 4.00-5.20 12/19/2016 8:27pm 12/19/2016 8: 46pm Hemoglobin 11.3 GM/DL L 12-16 12/19/2016 8:pm 12/19/2016 8:46pm Hematocrit 35.8 % L 36-46 12/19/2016 8:pm 12/19/2016 8:46pm Mean Corpuscular Volume 77.8 UM3 L 80-100 12/19/2016 8:27pm 12/19/2016 8 :46pm Mean Corpuscular Hemoglobin 24.6 UUG L 26-34 12/19/2016 8:pm 2016 8:46pm Mean Corpuscular Hemoglobin Concent 31.6 GM/DL 31-37 12/19/2016 8:pm 12/19/2016 8:46pm RDW Standard Deviation 48.0 FL 36.9-50.2 12/19/2016 8:pm 12/19/2016 8 :46pm Platelet Count 346 T/MM3 130-400 12/19/2016 8:pm 12/19/2016 8:46pm Mean Platelet Volume 10.6 UM3 9.4-12.4 12/19/2016 8:pm 12/19/2016 8: 46pm Neutrophils (%) (Auto) 57.3 % 33-66 12/19/2016 8:12/19/2016 8: 46pm Lymphocytes (%) (Auto) 29.4 % 23-45 12/19/2016 8:12/19/2016 8: 46pm Monocytes (%) (Auto) 9.6 % H 0-9.0 12/19/2016 8:12/19/2016 8:46pm Eosinophils (%) (Auto) 2.3 % 0-4 12/19/2016 8:12/19/2016 8:46pm Basophils (%) (Auto) 1.1 % 0-2 12/19/2016 8:12/19/2016 8:46pm Immature Granulocyte % (Auto) 0.3 % 0.0-0.5 12/19/2016 8:2016 8:46pm Absolute Neutrophils (auto) 5.4 T/MM3 1.8-7.7 12/19/2016 8:2016 8:46pm Absolute Lymphocytes (auto) 2.8 T/MM3 1-4.8 12/19/2016 8:2016 8:46pm Absolute Monocytes (auto) 0.9 T/MM3 H 0-0.8 12/19/2016 8:2016 8:46pm Absolute Eosinophils (auto) 0.2 T/MM3 0-0.5 12/19/2016 8:2016 8:46pm Absolute Basophils (auto) 0.1 T/MM3 0-0.2 12/19/2016 8:12/19/2016 8:46pm Absolute Immature Granulocyte (auto 0.03 T/MM3 0.00-0.03 12/19/2016 8: 12/19/2016 8:46pm Icterus Index < 2 0-7 12/19/2016 8:12/19/2016 8:42pm Chemistry Specimen Hemolysis < 15 0-25 12/19/2016 8:12/19/2016 8 :42pm 0-25: Specimen Exhibited No Hemolysis. Turbidity < 20 0-20 12/19/2016 8:pm 12/19/2016 8:42pm Sodium Level 140 MEQ/L 134-144 12/19/2016 8:12/19/2016 8:42pm Potassium Level 3.5 MEQ/L L 3.6-5 12/19/2016 8:12/19/2016 8:42pm Chloride Level 98 MEQ/L 98-107 12/19/2016 8:12/19/2016 8:42pm Carbon Dioxide Level 28 MEQ/L 22-30 12/19/2016 8:12/19/2016 8: 42pm Anion Gap 14 MEQ/L 5-12/19/2016 8:12/19/2016 8:42pm Blood Urea Nitrogen 17.0 MG/DL 7-12/19/2016 8:12/19/2016 8: 42pm Creatinine 0.9 MG/DL 0.7-1.2 12/19/2016 8:12/19/2016 8:42pm BUN/Creatinine Ratio 19 RATIO 02-0412/19/2016 8:12/19/2016 8:42pm Glomerular Filtration Rate Calc 59 12/19/2016 8:12/19/2016 8: 42pm Glucose Level 152 MG/DL H 65-110 12/19/2016 8:12/19/2016 8:42pm Calculated Osmolality 274 MOSM/KG 261-280 12/19/2016 8:12/19/2016 8:42pm Calcium Level 9.9 MG/DL 8.4-10.2 12/19/2016 8:12/19/2016 8:42pm Total Bilirubin 0.30 MG/DL 0.20-1.30 12/19/2016 8:12/19/2016 8: 42pm Alkaline Phosphatase 102 U/L 38-126 12/19/2016 8:12/19/2016 8: 42pm Total Protein 7.4 G/DL 6.3-8.2 12/19/2016 8:12/19/2016 8:42pm Albumin 4.3 G/DL 3.5-5.0 12/19/2016 8:12/19/2016 8:42pm Globulin 3.1 G/DL 2.4-3.6 12/19/2016 8:12/19/2016 8:42pm Albumin/Globulin Ratio 1.4 RATIO 1.1-2.2 12/19/2016 8:27pm 12/19/2016 8 :42pm Aspartate Amino Transf (AST/SGOT) 47 U/L H 14-36 12/19/2016 8:27pm 12/19 8:42pm Alanine Aminotransferase (ALT/SGPT) 59 U/L H 9-52 12/19/2016 8:27pm 05/2017 8:42pm Troponin I < 0.012 ng/ml 0-0.12 12/19/2016 8:27pm 12/19/2016 8:53pm Troponin values with a difference of 55% increase from orginal troponin value represent a true biological DELTA value. (%increase Calc=Orginal Troponin value, divided by subsequent Troponin value, multiplied by 100) Procedures Procedure Status Date Provider(s) Colonoscopy with polypectomy and biopsy Completed 12/19/16 SONIDO SEWELL DO Encounters Encounter Location Arrival/Admit Date Discharge/Depart Date Attending Provider Departed Emergency Room [facility] 12/19/16 8:04pm 12/19/16 9: 37pm SONIDO CATALAN MD Departed Surgical Day Care [facility] 12/19/16 6:29am 12/19/16 10 :22am SONIDO SEWELL DO Registered Clinic [facility] 12/11/16 8:50am SONIDO SEWELL DO Recent Diagnosis
--- OUTSIDE RECORDS SUMMARY | 2016-12-27 11:04 | XMS REPORT | Continuity of Care Document ---
Author Author [facility] Organization [facility] Address Unknown Phone Unavailable Support Name Relationship Address Phone SONIDO SEWELL DO Caregiver [facility] [address] [place] [phone] WILLIAM DESHPANDE Next Of Kin [address] [place], [place] [id number] Insurance Providers Payer Name Policy Number Subscriber Name Relationship Medicare [id number] Ursula Perez 18 Self [place] [id number] Ursula Perez Self Advance Directives Directive Response [...] Mg PO DAILY 90 Qty 08/24/14 Active [place]-3 Acid Ethyl Esters 2 Cap PO [...] F (96.8 - 99.1) Temperature (Calculated Celsius) 36.38978 degrees C (36.0 - 37.3) Temperature Source [...] 25, 2012 9:57pm LAB TEST FORM REQUEST [id number] - Lipase November 25, 2012 4:24pm 90 [...] Has specimen been collected/obtained? Y Urine Specific [place] February 19, 2011 1:45pm 1.015 - Has [...]
--- NOTE | 2016-12-27 11:37 | NUR ---
LAB LAB AT BEDSIDE FOR BLOOD DRAW
[2016-12-27] MEDS ORDERED: FOLI0.8T PO (11:39)
[2016-12-27] MEDS ORDERED: APIX2.5T PO (11:39)
[2016-12-27] MEDS ORDERED: CALC-52 PO (11:39)
[2016-12-27] MEDS ORDERED: VIT1CAPS21 PO (11:39)
[2016-12-27] MEDS ORDERED: MULT1TAB69 PO (11:39)
--- NOTE | 2016-12-27 11:46 | NUR ---
CHEST PRESSURE PATIENT REPORTS MILD CHEST PRESSURE, 1 SL NITRO GIVEN.
--- NOTE | 2016-12-27 11:51 | NUR ---
CP UPDATE PATIENT REPORTS CHEST PRESSURE HAS RESOLVED AFTER 1 SL NITRO
[2016-12-27 11:53] LABS: BASOPHILS # (AUTO) 0.1 T/MM3 (0-0.2); BASOPHILS % (AUTO) 1.3 % (0-2); EOSINOPHILS # (AUTO) 0.4 T/MM3 (0-0.5); EOSINOPHILS % (AUTO) 4.4 % (0-4); HCT - HEMATOCRIT 35.1 % (36-46); HGB - HEMOGLOBIN 11.3 GM/DL (12-16); IMMATURE GRANULOCYTE # (AUTO) 0.03 T/MM3 (0.00-0.03); IMMATURE GRANULOCYTE % (AUTO) 0.4 % (0.0-0.5); LYMPHOCYTES # (AUTO) 2.5 T/MM3 (1-4.8); LYMPHOCYTES % (AUTO) 30.9 % (23-45); MEAN CORPUSCULAR HGB 25.3 UUG (26-34); MEAN CORPUSCULAR HGB CONC(MCHC 32.2 GM/DL (31-37); MEAN CORPUSCULAR VOLUME 78.7 UM3 (80-100); MEAN PLATELET VOLUME 10.1 UM3 (9.4-12.4); MONOCYTES # (AUTO) 0.8 T/MM3 (0-0.8); MONOCYTES % (AUTO) 9.9 % (0-9.0); NEUTROPHILS #(AUTO)-ABSOLUTE 4.2 T/MM3 (1.8-7.7); NEUTROPHILS % (AUTO) 53.1 % (33-66); RED BLOOD COUNT 4.46 M/MM3 (4.00-5.20)
[2016-12-27 12:05] LABS: ANION GAP 15 MEQ/L (5-15); BUN/CREATININE RATIO 25 RATIO (6-26); CHLORIDE 101 MEQ/L (98-107); CO2 - CARBON DIOXIDE 28 MEQ/L (22-30); GLOMERULAR FILTRATION RATE 52; GLUCOSE 85 MG/DL (65-110); INR 1.13 (0.77-1.03); POTASSIUM 4.3 MEQ/L (3.6-5); PROTHROMBIN TIME 12.4 SEC (9.48-12.52); SODIUM 144 MEQ/L (134-144)
[2016-12-27 12:14] LABS: PROBNP 283 PG/ML (0-175)
--- NOTE | 2016-12-27 12:17 | DI ---
Indication: ITS.REASON: CHEST PRESSURE PROCEDURE: CHEST 1 VIEW: Encounter: Initial Comparison: September 19, 2011 FINDINGS: The lungs are clear. There is no abnormal airspace opacity, pleural effusion or pneumothorax identified. The heart size, pulmonary vasculature and mediastinum are within normal limits. No significant skeletal abnormality is seen. IMPRESSION: No acute cardiopulmonary abnormality. .
--- OUTSIDE RECORDS SUMMARY | 2016-12-27 12:20 | XMS REPORT | Continuity of Care Document ---
Author Author [facility] Organization [facility] Address Unknown Phone Unavailable Support Name Relationship Address Phone SONIDO SEWELL DO Caregiver [facility] [address] [place] [phone] WILLIAM DESHPANDE Next Of Kin [address] [place], [place] [id number] Insurance Providers Payer Name Policy Number Subscriber Name Relationship Medicare [id number] Ursula Perez 18 Self [place] [id number] Ursula Perez Self Advance Directives Directive Response [...] Mg PO DAILY 90 Qty 08/24/14 Active [place]-3 Acid Ethyl Esters 2 Cap PO TWICE [...] F (96.8 - 99.1) Temperature (Calculated Celsius) 36.79528 degrees C (36.0 - 37.3) Temperature Source [...] 25, 2012 9:57pm LAB TEST FORM REQUEST [id number] - Lipase November 25, 2012 4:24pm 90 [...] Has specimen been collected/obtained? Y Urine Specific [place] February 19, 2011 1:45pm 1.015 - Has [...]
--- NOTE | 2016-12-27 12:36 | NUR ---
ACTIVITY PATIENT AMBULATORY TO RESTROOM, TOLERATES ACTIVITY FAIR.
[2016-12-27] MEDS ORDERED: NITROGLYCERIN 0.4 MG SUBLINGUAL TABLET SL ONE (12:45)
[2016-12-27 12:49] LABS: BLOOD, URINE NEGATIVE (NEGATIVE); COLOR,URINE YELLOW (YELLOW); LEUKOCYTE ESTERASE ,URINE NEGATIVE (NEGATIVE); NITRITE,URINE NEGATIVE (NEGATIVE); UROBILINOGEN,URINE 0.2 EU/DL (NORMAL)
--- NOTE | 2016-12-27 12:53 | ERPDOC ---
Departure Disposition Decision Date: December 27, 2016 Disposition Decision Time: 13:18 Disposition: 02 TO [facility] Impression Impression Impression: Primary Impression: Atrial fibrillation Atrial fibrillation type: paroxysmal Qualified Codes: I48.0 - Paroxysmal atrial fibrillation Severity: Moderate Condition: Stable Seen By: Mid-level only Referrals: SONIDO SEWELL DO (Family) Problems/Meds/Labs Reviewed?: Yes Medications reviewed and manag: Yes Follow up care ordered?: Yes Mental Status: Alert, Oriented HPI - Syncope General Chief Complaint: Dizzy Stated Complaint: NECK PAIN, FAINTING, IRREGULAR HEARTBEAT Time Seen by Provider: 12:01 Source: patient Exam Limitations: no limitations HPI - Syncope Initial Comments She presents to ER today for evaluation of lightheadedness and presyncope. She states that she has had trouble with this over the last 2 weeks. Has seen both her PCP and Dr Christensen for this. Just saw him in clinic yesterday. [place] [facility] [place] but she is unsure what for exactly. She will have a nuclear med stress test and some other testing. She does have a Linx monitor implanted and had it interrogated yesterday. States that they did note something that was the reason for the admission coming up but she is unsure what they saw. She does have a history of frequent PVC. She has had this same trouble in the past about 2 years ago but it went away for awhile and has recently returned. Today she feels like it was a little different. Started in her chest and she had pain in the back of her neck. Did feel like her vision was going black but did not every pass out. She also did have a mild headache in the frontal aspect of her head. She did also have some mild chest pressure. Upon arrival to Er she was given a nitro x1 and all of her symptoms have resolved at this time. Occurred At: home Onset: Gradual Duration: other (Over the last 2 weeks) Symptoms Prior to Episode: lightheadedness Loss of Consciousness: no loss of consciousness Current Symptoms: back to normal, chest pain (upon arrival, none currently), dizziness, headache (mild in the frontal aspect of the head), lightheadedness, DENIES: blurred vision, diaphoresis, injury, loss of bladder control, loss of bowel control, motionless, nausea, pale, shallow/rapid breathing, weak/absent pulse, weakness Hx of Similar Symptoms: Yes Allergies: Coded Allergies: Sulfa (Sulfonamide Antibiotics) (Verified Allergy, Intermediate, HIVES, ) morphine (Verified Allergy, Intermediate, red and hives all over, 12/27/16) sulfamethoxazole (Verified Allergy, Intermediate, hives, 12/27/16) atorvastatin (Unverified Allergy, Unknown, MYALGIA, 12/27/16) losartan potassium (Verified Allergy, Unknown, 12/27/16) simvastatin (Unverified Allergy, Unknown, MYALGIA, 12/27/16) trimethoprim (Verified Allergy, Unknown, 12/27/16) aspirin (Verified Adverse Reaction, Intermediate, UPSETS STOMACH, 12/27/16) oxycodone HCl (Verified Adverse Reaction, Intermediate, ABDOMINAL PAIN, ) tetracycline (Verified Adverse Reaction, Intermediate, terrible pain in stomach, 12/27/16) lisinopril (Verified Adverse Reaction, Unknown, COUGH, 12/27/16) Past History Past Medical History Metabolic: diabetes, hypercholesterolemia, hypertension Cardiac: A-fib, CAD GI: ulcers Surgical History General: appendix, gallbladder, tonsils Reproductive/: hysterectomy Vaccines Hx Influenza Vaccination: Yes (fall 2015) Hx Pneumococcal Vaccination: Yes (fall 2015) Social History Does patient use chewing tobac: No Second Hand Exposure: No Substance Use Type: does not use Review of Systems Constitutional Constitutional: dizziness, DENIES: chills, fatigue, fever, weakness Eyes Vision: DENIES: blurring, double vision ENMT Ears: DENIES: drainage, pain Sinuses: DENIES: congestion, rhinorrhea Mouth/Throat: DENIES: painful swallowing, scratchy throat, sore throat Cardiovascular Cardiac: chest pain, DENIES: dyspnea on exertion, orthopnea Rhythm/Rate: DENIES: irregular beat, palpitations Vascular: DENIES: pedal edema, unilateral swelling Pulmonary Respiratory: DENIES: cough, dyspnea, sputum, tachypnea GI Upper Abdomen: DENIES: nausea, pain, vomiting Lower Abdomen: DENIES: constipation, diarrhea, pain Integumentary Skin: DENIES: rash Neurological General: DENIES: headache, numbness, tingling, weakness Physical Exam General General Nourishment: well nourished, well developed, appears stated age, no acute distress, adult General Body Habitus: well groomed Vitals and Pain First Documented Vital Signs Date Time Temp Pulse Resp B/P Pulse Ox O2 Delivery O2 Flow Rate FiO2 12/27/16 11:10 97.6 70 20 137/64 93 Room Air Weight: Kilograms: 63.600 Height (feet): 5 Height (inches): 4.00 Triage Pain Scale: RN VS reviewed by Provider: Yes Normal Exams: Neck: Full range of motion, without adenopathy, JVD, bruits or thyromegaly Chest/Resp: Clear all mcelroy, with good airflow, and symmetry bilaterally CV: Regular rate and rhythm, without murmur or gallop, Pulses 2+ all extremities, capillary refill, <2 seconds all ext., no pedal edema noted Abdomen: Bowel sounds positive, soft, non-tender, non-distended, no hepatosplenomegaly, masses or bruits noted Lymphatic: No lymphadenopathy, or lymphedema noted Integumentary: No rashes, hives, or bruising noted Neurologic: Patient is alert, and oriented Psychiatric: Patient exhibits, appropriate attention, emotion and affect Differential Diagnoses Differential Diagnoses Considering: Acute TN/Ischemia, Cardiac Dysrhythmia, Hypoglycemia, Hypothermia , Long QT Syndrome, UTI, Vasovagal Reaction Progress Results/Orders Orders Procedure Category Date Status Time Cbc W/Auto LAB 12/27/16 Complete Diff-Reflex Manual 11:32 Bmp - Basic Metabolic LAB 12/27/16 Complete Panel 11:32 Probnp LAB 12/27/16 Complete 11:32 Troponin I W LAB 12/27/16 Complete Hemolysis Index 11:32 INR LAB 12/27/16 Complete 11:32 D-Dimer LAB 12/27/16 Complete 11:32 EKG EKG 12/27/16 Taken 11:32 Chest 1 View RAD 12/27/16 Resulted 11:32 Iv Lock (Ed Only) EDM 12/27/16 Transmitted 11:32 Ua, Dip Wreflex LAB 12/27/16 Complete Microsc & Loader Helper 12:02 Nitroglycerin PHA 12/27/16 Complete (Nitrostat) 12:45 Place In Facility As: ADMIT 12/27/16 Transmitted Telemetry BERRY 12/27/16 Transmitted 13:17 Lab Results Laboratory Tests Test 12/27/16 11:40 12/27/16 12:40 White Blood Count 8.0T/MM3 Red Blood Count 4.46M/MM3 Hemoglobin 11.3GM/DL Hematocrit 35.1% Mean Corpuscular Volume 78.7UM3 Mean Corpuscular Hemoglobin 25.3UUG Mean Corpuscular Hemoglobin Concent 32.2GM/DL RDW Standard Deviation 54.6FL Platelet Count 298T/MM3 Mean Platelet Volume 10.1UM3 Immature Granulocyte % (Auto) 0.4% Neutrophils (%) (Auto) 53.1% Lymphocytes (%) (Auto) 30.9% Monocytes (%) (Auto) 9.9% Eosinophils (%) (Auto) 4.4% Basophils (%) (Auto) 1.3% Absolute Immature Granulocyte (auto 0.03T/MM3 Absolute Neutrophils (auto) 4.2T/MM3 Absolute Lymphocytes (auto) 2.5T/MM3 Absolute Monocytes (auto) 0.8T/MM3 Absolute Eosinophils (auto) 0.4T/MM3 Absolute Basophils (auto) 0.1T/MM3 Prothromb Time International Ratio 1.13 D-Dimer < 150NG/ML Turbidity < 20 Sodium Level 144MEQ/L Potassium Level 4.3MEQ/L Chloride Level 101MEQ/L Carbon Dioxide Level 28MEQ/L Anion Gap 15MEQ/L Blood Urea Nitrogen 25.0MG/DL Creatinine 1.0MG/DL Glomerular Filtration Rate Calc 52 BUN/Creatinine Ratio 25RATIO Glucose Level 85MG/DL Calculated Osmolality 280MOSM/KG Calcium Level 10.0MG/DL Icterus Index < 2 Troponin I < 0.012ng/ml PW-Qas-P-Type Natriuretic Peptide 283PG/ML Chemistry Specimen Hemolysis < 15 Urine Collection Type Cleancatch-midstream Urine Color Yellow Urine Turbidity Clear Urine pH 5.5 Urine Specific [place] <=1.005 Urine Protein Negative Urine Glucose (UA) Negative Urine Ketones Negative Urine Blood Negative Urine Nitrite Negative Urine Bilirubin Negative Urine Urobilinogen 0.2EU/DL Urine Leukocyte Esterase Negative Urinalysis Comment Microscopic not ind. Medications Current ED Medications Nitroglycerin (Nitrostat) 0.4 mg O ONCE SL Last administered on 12/27/16t 11: 46; Start 12/27/16 at 12:45; Stop 12/27/16 at 12:46; Status DC Progress Progress CBC, BMP, and troponin today are negative. Ddimer and BNP today are negative as well. Chest xray is negative. I did talk with Modesta Castro APRN with Dr Christensen. Jaye was scheduled to be admitted for initiation of antiarrhythmic therapy, she will be started on Flecainide. Will go ahead and admit today to initiate therapy since her symptoms are worse today. Xray Xray : Reason for Exam: chest pressure Xray: CXR PA/Lat Interpretation: Normal ELVIRA SAENZ APRN December 27, 2016 12:53
--- NOTE | 2016-12-27 13:30 | NUR ---
REPORT THIS NURSE RECEIVED REPORT FROM ANITHA MARTIN AT THIS TIME, NO CONCERNS AT THIS TIME.
--- NOTE | 2016-12-27 13:30 | NUR ---
REPORT REPORT CALLED TO MIKE MARTIN ON MEDICAL UNIT.
--- OUTSIDE RECORDS SUMMARY | 2016-12-27 13:38 | XMS REPORT | Continuity of Care Document ---
Author Author [facility] Organization [facility] Address Unknown Phone Unavailable Support Name Relationship Address Phone SONIDO SEWELL DO Caregiver [facility] [address] [place] [phone] WILLIAM DESHPANDE Next Of Kin [address] [place], [place] [id number] Insurance Providers Payer Name Policy Number Subscriber Name Relationship Medicare [id number] Ursula Perez 20 Self Eve[place] [id number] Ursula Perez Self Advance Directives Directive Response [...] Mg PO DAILY 90 Qty 08/24/14 Active [place]-3 Acid Ethyl Esters 2 Cap PO TWICE [...] F (96.8 - 99.1) Temperature (Calculated Celsius) 36.46610 degrees C (36.0 - 37.3) Temperature Source [...] 25, 2012 9:57pm LAB TEST FORM REQUEST [id number] - Lipase November 25, 2012 4:24pm 90 [...] Has specimen been collected/obtained? Y Urine Specific [place] February 19, 2011 1:45pm 1.015 - Has [...]
--- NOTE | 2016-12-27 13:40 | NUR ---
ADMIT PT ADMITTED BY WHEELCHAIR TO ROOM 162 AT THIS TIME. PT ON RA, DENIES SOA. DENIES CHEST PAIN. WILL CONTINUE TO MONITOR.
--- NOTE | 2016-12-27 13:40 | NUR ---
ADMIT PATIENT TAKEN TO MEDICAL ROOM 162 PER WC, STABLE.
[2016-12-27 13:45] VITALS: BP 141/73; PULSE 74; RESP 18; TEMP 96.5; O2SAT 95
[2016-12-27 13:48] VITALS: Ht 162.6 cm; Wt 71.2 kg
[2016-12-27 14:00] VITALS: RESP 18
[2016-12-27] MEDS: FLECAINIDE 50 MG TABLET PO SCH ×2 (15:15→21:06)
[2016-12-27 15:20] VITALS: BP 140/71; PULSE 74; RESP 16; TEMP 96.5; O2SAT 94
[2016-12-27 16:18] LABS: MAGNESIUM 1.5 MG/DL (1.6-2.3)
[2016-12-27 16:50] LABS: THYROID STIM HORMONE-TSH 1.82 MIU/L (0.47-4.68)
--- NOTE | 2016-12-27 17:23 | HPPDOC ---
HPI - Adult Date DATE: 12/27/16 TIME: 16:03 General Date of Admission Date of Admission: December 27, 2016 at 13:18 Chief Complaint: syncope History of Present Illness Jaye is an 89 year old female who is well known to Dr. Christensen with a history of precordial pain the past couple of days, syncope and collapse, paroxysmal atrial fibrillation, HTN, HLD and DM type II who presented to ED today for evaluation of lightheadedness and presyncope. She states that she has had trouble with this over the last 2 weeks. Has seen both her PCP and Dr Christensen for this. Just saw him in clinic yesterday. Is scheduled to come into [facility] [place] in a week for antiarrhythmic therapy on Flecainide. She will also have a nuclear med stress test and some other testing. She does have a LINQ monitor implanted and had it interrogated yesterday. LINQ monitor showed irregular heart rate. She takes Eliquis. She does have a history of frequent PVC. She has had this same trouble in the past about 2 years ago but it went away for awhile and has recently returned. Today she feels like it was a little different. Started in her chest and she had pain in the back of her neck. Did feel like her vision was going black but did not every pass out. She also did have a mild headache in the frontal aspect of her head. She did also have some mild chest pressure. Upon arrival to ED she was given a nitro x1 and all of her symptoms have resolved at this time. She was examined in her room on the Medical floor. She will start Flecainide and have continuous telemetry monitoring overnight with EKG tomorrow at noon. Past Medical History Past Medical History Metabolic: diabetes, hypercholesterolemia, hypertension Cardiac: A-fib, CAD GI: ulcers Surgical History General: appendix, gallbladder, tonsils Reproductive/: hysterectomy Current Medications Home Meds Reported Medications Vit C/Vit E/Lutein/Min/[place]-3 (Ocuvite Softgel) 1 Each Capsule, 1 CAP PO DAILY 12/27/16 Folic Acid (Folic Acid) Unknown Strength Tablet, PO DAILY 12/27/16 Multivitamin (Multivitamins) 1 Each Tablet, 1 TAB PO DAILY 12/27/16 Calcium Carbonate (Calcium) Unknown Strength Tablet, PO DAILY 12/27/16 Apixaban (Eliquis) 2.5 Mg Tablet, 2.5 MG PO BID 12/27/16 Amlodipine Besylate (Amlodipine Besylate) 10 Mg Tablet, 5 MG PO DAILY 12/19/16 Trazodone HCl (Trazodone HCl) 50 Mg Tablet, 50 MG PO HS 12/18/16 Linagliptin (Tradjenta) 5 Mg Tablet, 5 MG PO DAILY 12/18/16 Metoprolol Succinate (Metoprolol Succinate) 25 Mg Tab.er.24h, 25 MG PO DAILY, TAB 12/11/16 Pravastatin Sodium (Pravastatin Sodium) 40 Mg Tablet, 40 MG PO HS 08/24/14 Omeprazole (Omeprazole) 40 Mg Capsule.dr, 40 MG PO DAILY 08/24/14 Sucralfate (Carafate) 1 G Tablet, 1 G PO HS 11/26/12 Metformin Hcl (Glucophage) 500 Mg Tablet, 1000 MG PO BID 11/05/09 Allergies: Coded Allergies: Sulfa (Sulfonamide Antibiotics) (Verified Allergy, Intermediate, HIVES, ) morphine (Verified Allergy, Intermediate, red and hives all over, 12/27/16) sulfamethoxazole (Verified Allergy, Intermediate, hives, 12/27/16) atorvastatin (Unverified Allergy, Unknown, MYALGIA, 12/27/16) losartan potassium (Verified Allergy, Unknown, 12/27/16) simvastatin (Unverified Allergy, Unknown, MYALGIA, 12/27/16) trimethoprim (Verified Allergy, Unknown, 12/27/16) aspirin (Verified Adverse Reaction, Intermediate, UPSETS STOMACH, 12/27/16) oxycodone HCl (Verified Adverse Reaction, Intermediate, ABDOMINAL PAIN, ) tetracycline (Verified Adverse Reaction, Intermediate, terrible pain in stomach, 12/27/16) lisinopril (Verified Adverse Reaction, Unknown, COUGH, 12/27/16) Family History FOUND: CAD (brother and sister) Vaccines 2016 Apr 2016 Social History Smoking Status: Never smoker Does patient use chewing tobac: No Second Hand Exposure: No Substance Use Type: does not use Marital Status: Advance Directives: Yes DPOA for Healthcare Only ([facility] DESHPANDE) Review of Systems Constitutional: REPORTS: dizziness, syncope (near), DENIES: chills, fever Eyes Vision: DENIES: vision changes ENMT Hearing: DENIES: hearing loss, tinnitus Balance: DENIES: vertigo Mouth/Throat: DENIES: sore throat Cardiovascular chest pain (tightness), DENIES: dyspnea on exertion, murmur Rhythm/Rate: irregular beat, DENIES: palpitations Vascular: DENIES: pedal edema Pulmonary Respiratory: DENIES: cough, sputum GI Upper Abdomen: DENIES: nausea, vomiting Lower Abdomen: DENIES: diarrhea General: DENIES: dysuria Integumentary Skin: DENIES: rash, sores Neurological General: headache, syncope, DENIES: numbness, seizures, vertigo, weakness All Other Systems All Other Systems: Reviewed (remainder of 10-point ROS Neg.) Physical Exam General General Nourishment: well nourished, well developed, apparent age Vital Signs Vital Signs Date Time Temp Pulse Resp B/P Pulse Ox O2 Delivery O2 Flow Rate FiO2 12/27/16 15:20 96.5 74 16 140/71 94 Room Air Height (Feet): 5 Height (Inches): 4.00 Telemetry Rhythm: Sinus Rhythm Telemetry Ectopy: PVC, [place] ENMT Brief: FOUND: mucosa moist Neck Brief: NOT FOUND: JVD, carotid bruits Respiratory Brief: FOUND: clear all mcelroy, equal bilaterally, NOT FOUND: rales , wheezes Cardiovascular (brief) Cardiac Brief: FOUND: murmur (II/), regular rate, regular rhythm, NOT FOUND: click, gallop, pedal edema Abdomen (brief) Abdominal Brief: FOUND: BS normo active x4, soft, NOT FOUND: tender Integumentary (brief) Integumentary Brief: FOUND: dry, pink, warm Neurologic RN Documented GCS Eye Opening: Verbal: Motor: Total: Psychiatric (brief) FOUND: alert, attentive, oriented Laboratory Laboratory Tests Test 12/27/16 11:40 12/27/16 12:40 White Blood Count 8.0T/MM3 Red Blood Count 4.46M/MM3 Hemoglobin 11.3GM/DL Hematocrit 35.1% Mean Corpuscular Volume 78.7UM3 Mean Corpuscular Hemoglobin 25.3UUG Mean Corpuscular Hemoglobin Concent 32.2GM/DL RDW Standard Deviation 54.6FL Platelet Count 298T/MM3 Mean Platelet Volume 10.1UM3 Immature Granulocyte % (Auto) 0.4% Neutrophils (%) (Auto) 53.1% Lymphocytes (%) (Auto) 30.9% Monocytes (%) (Auto) 9.9% Eosinophils (%) (Auto) 4.4% Basophils (%) (Auto) 1.3% Absolute Immature Granulocyte (auto 0.03T/MM3 Absolute Neutrophils (auto) 4.2T/MM3 Absolute Lymphocytes (auto) 2.5T/MM3 Absolute Monocytes (auto) 0.8T/MM3 Absolute Eosinophils (auto) 0.4T/MM3 Absolute Basophils (auto) 0.1T/MM3 Prothromb Time International Ratio 1.13 D-Dimer < 150NG/ML Turbidity < 20 Sodium Level 144MEQ/L Potassium Level 4.3MEQ/L Chloride Level 101MEQ/L Carbon Dioxide Level 28MEQ/L Anion Gap 15MEQ/L Blood Urea Nitrogen 25.0MG/DL Creatinine 1.0MG/DL Glomerular Filtration Rate Calc 52 BUN/Creatinine Ratio 25RATIO Glucose Level 85MG/DL Calculated Osmolality 280MOSM/KG Calcium Level 10.0MG/DL Icterus Index < 2 Troponin I < 0.012ng/ml XY-Ncd-C-Type Natriuretic Peptide 283PG/ML Chemistry Specimen Hemolysis < 15 Urine Collection Type Cleancatch-midstream Urine Color Yellow Urine Turbidity Clear Urine pH 5.5 Urine Specific [place] <=1.005 Urine Protein Negative Urine Glucose (UA) Negative Urine Ketones Negative Urine Blood Negative Urine Nitrite Negative Urine Bilirubin Negative Urine Urobilinogen 0.2EU/DL Urine Leukocyte Esterase Negative Urinalysis Comment Microscopic not ind. EKG SR with bigeminal PVCs Radiology DATE OF EXAM: 12/27/16 ORDERING DOCTOR: SOURAV FERRELL MD TYPE OF EXAM: CHEST 1 VIEW REASON FOR EXAM: CHEST PRESSURE Indication: ITS.REASON: CHEST PRESSURE PROCEDURE: CHEST 1 VIEW: Encounter: Initial Comparison: September 19, 2011 FINDINGS: The lungs are clear. There is no abnormal airspace opacity, pleural effusion or pneumothorax identified. The heart size, pulmonary vasculature and mediastinum are within normal limits. No significant skeletal abnormality is seen. IMPRESSION: No acute cardiopulmonary abnormality. Assessment & Plan Problems: (1) Syncope and collapse Status: Acute Assessment & Plan: Near syncope. Constant feeling of near syncope over the past couple of days, reports seeing black spots and feeling as if she would faint. Chlorthalidone was stopped yesterday (2) Paroxysmal atrial fibrillation Status: Chronic Assessment & Plan: antiarrhythmic therapy on Flecainide. She takes Eliquis (3) Presence of other cardiac implants and grafts Status: Chronic Assessment & Plan: showed irregular heart rate (4) Essential (primary) hypertension Status: Chronic Assessment & Plan: continue current therapy (5) Mixed hyperlipidemia Status: Chronic Assessment & Plan: PCP manages (6) Type 2 diabetes mellitus without complications Status: Chronic Qualifiers: Diabetes mellitus parts counterman insulin use: unspecified parts counterman insulin use status Qualified Codes: E11.9 - Type 2 diabetes mellitus without complications Assessment & Plan: PCP manages Code Status Full Code, unverified Hospital Course Summary Disclaimer The hospital course summary below is not to be considered part of the above Progress Note. KAI NEWELL ELECTRICAL CONTACTS ADJUSTER December 27, 2016 16:10
[2016-12-27] MEDS: METFORMIN 1,000 MG TABLET PO SCH (18:39)
--- NOTE | 2016-12-27 18:51 | NUR ---
SHIFT SUMMARY PT ALERT AND ORIENTED X3. PT ON RA, DENIES SOA. DENIES CHEST PAIN, DENIES N/V AT THIS TIME. UP WITH STAND BY ASSIST, REPORTS SLIGHT LIGHTHEADEDNESS AT TIMES. ADEQUATE URINE OUTPUT. IVL LEFT FOREARM. PT ABLE TO MAKE NEEDS KNOWN. AT BEDSIDE. CHAIR ALARM ON, CALL LIGHT WITHIN REACH.
[2016-12-27] MEDS: TRAZODONE 50 MG TABLET PO SCH (21:06)
[2016-12-27] MEDS: APIXABAN 5 MG TABLET PO SCH (21:07)
[2016-12-27] MEDS: PRAVASTATIN 40 MG TABLET PO SCH (22:28)
[2016-12-27] MEDS: SUCRALFATE 1 G TABLET PO SCH (22:28)
[2016-12-28] VITALS (24 sets, daily range): BP systolic 103–141; BP diastolic 54–90; PULSE 66–80; RESP 12–44; TEMP 96.2–98.1; O2SAT 90–97
[2016-12-28 05:31] LABS: BASOPHILS # (AUTO) 0.1 T/MM3 (0-0.2); BASOPHILS % (AUTO) 1.2 % (0-2); EOSINOPHILS # (AUTO) 0.4 T/MM3 (0-0.5); EOSINOPHILS % (AUTO) 5.1 % (0-4); HCT - HEMATOCRIT 33.8 % (36-46); HGB - HEMOGLOBIN 10.9 GM/DL (12-16); IMMATURE GRANULOCYTE # (AUTO) 0.03 T/MM3 (0.00-0.03); IMMATURE GRANULOCYTE % (AUTO) 0.4 % (0.0-0.5); LYMPHOCYTES # (AUTO) 3.2 T/MM3 (1-4.8); LYMPHOCYTES % (AUTO) 44.6 % (23-45); MEAN CORPUSCULAR HGB 25.3 UUG (26-34); MEAN CORPUSCULAR HGB CONC(MCHC 32.2 GM/DL (31-37); MEAN CORPUSCULAR VOLUME 78.6 UM3 (80-100); MEAN PLATELET VOLUME 10.7 UM3 (9.4-12.4); MONOCYTES # (AUTO) 0.7 T/MM3 (0-0.8); MONOCYTES % (AUTO) 10.1 % (0-9.0); NEUTROPHILS #(AUTO)-ABSOLUTE 2.8 T/MM3 (1.8-7.7); NEUTROPHILS % (AUTO) 38.6 % (33-66); WBC - WHITE BLOOD COUNT 7.2 T/MM3 (4.5-11.0)
[2016-12-28 05:46] LABS: ANION GAP 13 MEQ/L (5-15); BUN/CREATININE RATIO 26 RATIO (6-26); CALCIUM 10.1 MG/DL (8.4-10.2); CHLORIDE 102 MEQ/L (98-107); CO2 - CARBON DIOXIDE 26 MEQ/L (22-30); CREATININE 0.9 MG/DL (0.7-1.2); GLOMERULAR FILTRATION RATE 59; GLUCOSE 121 MG/DL (65-110); POTASSIUM 3.9 MEQ/L (3.6-5); SODIUM 141 MEQ/L (134-144)
--- NOTE | 2016-12-28 06:27 | NUR ---
SUMMARY PT SLEPT WELL THIS SHIFT. ALERT AND ORIENTED X3. DENIED ANY PAIN THIS SHIFT. PT DENIED ANY CHEST PAIN OR DISCOMFORT. PT IS ONE PERSON STAND BY TO THE BATHROOM. EDUCATED FURNITURE STAINER LIGHT USE AND PT SAFETY.
[2016-12-28] MEDS ORDERED: OMEPRAZOLE 20 MG CAPSULE PO SCH (09:00)
[2016-12-28] MEDS: MULTIVITAMIN + MINERAL TABLET PO SCH (09:22)
[2016-12-28] MEDS: METFORMIN 1,000 MG TABLET PO SCH (09:22)
[2016-12-28] MEDS: METOPROLOL XL 25 MG TABLET PO SCH (09:23)
[2016-12-28] MEDS: AMLODIPINE 5 MG TABLET PO SCH (09:23)
[2016-12-28] MEDS: APIXABAN 5 MG TABLET PO SCH ×2 (09:23→21:03)
[2016-12-28] MEDS: LINAGLIPTIN 5 MG TABLET PO SCH (09:23)
[2016-12-28] MEDS: FLECAINIDE 50 MG TABLET PO SCH (09:23)
[2016-12-28] MEDS: MULTIVIT + MINERALS (OPTI-GEN) PO SCH (09:23)
--- NOTE | 2016-12-28 12:19 | NUR ---
CHEST TIGHTNESS AND LIGHTHEADED PT REPORTS HAVING CHEST TIGHTNESS AND FEELING LIGHTHEADED. VITAL SIGNS WERE TAKEN CHARTED. KAI NEWELL APRN, WAS NOTIFIED. ORDERS RECEIVED.
[2016-12-28] MEDS: NITROGLYCERIN 0.4 MG SUBLINGUAL TABLET SL PRN ×2 (12:30→12:46)
--- NOTE | 2016-12-28 13:15 | NUR ---
NITRO NITRO WAS GIVEN X2 ORDERED AND CHARTED. PT STATED, "MY CHEST TIGHTNESS IS BETTER BUT NOT COMPLETE AWAY." KAI NEWELL APRN, WAS NOTIFIED. DR. NINO WILL COME AND CHECK ON HER.
--- NOTE | 2016-12-28 13:40 | NUR ---
TRANSPORT PT WAS TRANSPORT TO BILLING AUDITOR PER CART ACCOMPANIED BY A STAFF MEMBER AND .
[2016-12-28] MEDS ORDERED: LIDOCAINE 1% (10mg/ml) 30ml SDV ONE (13:42)
[2016-12-28] MEDS ORDERED: HEPARIN 1,000units in NS 500ml BAG IV ONE (13:42)
[2016-12-28] MEDS ORDERED: MIDAZOLAM 2mg/2ml INJECTION ONE ×2 (13:45→14:14)
[2016-12-28] MEDS ORDERED: VERAPAMIL 5mg/2ml INJECTION IV ONE (13:45)
[2016-12-28] MEDS ORDERED: FENTANYL 100mcg/2ml INJECTION ONE (13:45)
[2016-12-28] MEDS ORDERED: NITROGLYCERIN 50mg/10ml INJECTION IV ONE (13:46)
[2016-12-28] MEDS ORDERED: NORMAL SALINE 1,000 ML ONE (14:01)
[2016-12-28] MEDS ORDERED: CLOPIDOGREL 75 MG TABLET ONE ×2 (14:22→14:31)
--- NOTE | 2016-12-28 14:31 | NUR ---
CM BANDARE SCORE IS 5. Addendum: 12/28/16 at 1432 by MYA GUAN SW Amended: Links added.
--- NOTE | 2016-12-28 14:42 | NUR ---
CM THIS WORKER SPOKE WITH PT AND SPOUSE WAS PRESENT WITH PT'S PERMISSION. PT AND SPOUSE LIVE IN [employer], AND THEY SAID THE DC PLAN IS FOR PT TO RETURN HOME. PT STATED SHE DOES NOT HAVE HOME HEALTH AND DENIED NEEDING HOME HEALTH (SPOUSE STATED HE HELPS IF NEEDED), AND THEY BOTH DENIED HAVING HOME NEEDS. THIS WORKER ENCOURAGED THEM TO CALL IF NEEDS/QUESTIONS DO ARISE, AND THEY SAID OK. Addendum: 12/28/16 at 1443 by MYA MONROE Amended: Links added.
[2016-12-28] MEDS ORDERED: MAG-AL + SIM LIQUID 30 ML UDC PO PRN (14:45)
[2016-12-28] MEDS ORDERED: ACETAMINOPHEN 325 MG TABLET PO PRN (14:45)
[2016-12-28] MEDS ORDERED: MILK OF MAGNESIA 30 ML SUSP PO PRN (14:45)
[2016-12-28] MEDS ORDERED: NITROGLYCERIN 0.4 MG SUBLINGUAL TABLET SL PRN (14:45)
[2016-12-28] MEDS ORDERED: BISACODYL 10 MG SUPPOSITORY RECTALLY PRN (14:45)
[2016-12-28] MEDS ORDERED: METOCLOPRAMIDE 10mg/2ml INJECTION IV PRN (14:45)
[2016-12-28] MEDS ORDERED: BISACODYL 5 MG E.C. TABLET PO PRN (14:45)
[2016-12-28] MEDS ORDERED: LORAZEPAM 2 MG/ML INJECTION IV PRN (14:45)
[2016-12-28] MEDS ORDERED: ONDANSETRON 4mg/2ml INJECTION IV PRN (14:45)
[2016-12-28] MEDS ORDERED: LORAZEPAM 0.5 MG TABLET PO PRN (14:45)
[2016-12-28] MEDS ORDERED: PROMETHAZINE 25 MG INJECTION IV PRN (14:45)
[2016-12-28] MEDS ORDERED: ATROPINE 1 MG/ML VIAL IV PRN (14:45)
--- NOTE | 2016-12-28 14:50 | NUR ---
ADMISSION TO CCU VIA CART FROM STRATEGY INTERN. PT TRANSFERRED TO BED BY BED BOARD X4 ASSIST, PT TOLERATED WELL. PT A&OX3. VSS. PT POST HEART CATH WITH TRANSRADIAL BAND. TR BAND INTACT, SCANT BLOOD LEAKAGE OBSERVED BY THIS RN AND STRATEGY INTERN RN. PT PLEASANT AND COOPERATIVE WITH CARES.
--- NOTE | 2016-12-28 14:55 | CVPROF ---
DATE OF PROCEDURE December 28, [address] Clark Schrader The patient is a very pleasant 89-year-old lady who was admitted with frequent PVCs and has been having increasing chest pressure and tightness and heaviness and was referred for further evaluation by cardiac catheterization and possible intervention. Informed consent was obtained after explaining the procedure and the potential risks to the patient who agreed to proceed with the procedure. PROCEDURE 1. Left heart catheterization. 2. Coronary angiography. 3. Left ventriculography. 4. Primary stent of mid LAD using a 2.5 x 12 mm drug-eluting Resolute Integrity stent. TECHNIQUE She was prepped and draped in the usual sterile techniques. 1% lidocaine was used for local anesthesia. Using modified Seldinger technique, arterial access was obtained into the right radial artery with placement of a 6-Nepali arterial sheath. Conscious sedation was performed using Versed and fentanyl. 3000 units of heparin, 300 mcg of nitroglycerin, and 2.5 mg of verapamil were given through the arterial sheath. Additional 2500 units of heparin was administered IV prior to intervention. She also received 600 mg of Plavix orally. LEFT VENTRICULOGRAPHY Left ventriculography in single-plane DE LEON shallow projection showed normal LV systolic function with ejection fraction of 65% with no mitral regurgitation or gradient across the aortic valve. LVEDP was about 20. CORONARY ANGIOGRAPHY Left main was free of significant lesions. Left anterior descending artery had 40% proximal stenosis and 90% mid stenosis. It was a medium caliber vessel which wrapped around the apex. Left circumflex artery had 80-90% proximal stenosis. There was another 60-70% stenosis distal to the origin of the first marginal. Right coronary artery was dominant with about 70% proximal stenosis. After reviewing the images we decided to proceed with intervention on LAD. A 6-Nepali [employer] left guide was advanced to the ostium of left main. A Runthrough wire was used to cross the lesion into distal LAD. A 2.5 x 12 mm drug-eluting Resolute Integrity stent was delivered to the lesion site where it was deployed by inflating the balloon to 14 atmospheres. Next, angiogram showed excellent results with no residual stenosis. The patient tolerated the procedure well with no complications. IMPRESSION 1. Multivessel coronary artery disease as described above. 2. Normal LV systolic function with ejection fraction of 65%. 3. Successful primary stent of mid LAD using a 2.5 x 12 drug-eluting Resolute Integrity stent. PLAN Will continue her on dual antiplatelet therapy. The patient is not a candidate for coronary artery bypass graft with advanced age. Will schedule her to undergo left circumflex and RCA percutaneous interventions in future. BLOSSOM
[2016-12-28] MEDS ORDERED: ASPIRIN *EC* 325mg TABLET PO ONE (15:15)
[2016-12-28] MEDS: AMIODARONE 200 MG TABLET PO SCH ×2 (16:49→21:05)
--- NOTE | 2016-12-28 17:44 | NUR ---
SHIFT PT HAS BEEN PLEASANT AND COOPERATIVE SINCE ADMISSION. PT DENIES PAIN, N/V AND SOA. PT IS ON 1L O2 NC TO KEEP SATS ABOVE 90%. RIGHT WRIST RADIAL BAND IN PLACE, PT DID HAVE SOME BLEEDING AT SITE SO BAND REMOVAL IS TAKING LONGER THAN USUAL. PT HAS VOIDED AND DENIES THE NEED FOR BM. HAS BEEN AT BEDSIDE. VITALS WNL, NO OTHER CHANGES. ALARMS IN USE AND CALL LIGHT WITH IN REACH.
[2016-12-28] MEDS: TRAZODONE 50 MG TABLET PO SCH (21:07)
[2016-12-28] MEDS: PRAVASTATIN 40 MG TABLET PO SCH (21:07)
[2016-12-28] MEDS: SUCRALFATE 1 G TABLET PO SCH (21:07)
--- NOTE | 2016-12-28 23:50 | NUR ---
O2 PT PLACED BACK ON 1L O2 NC FOR SATS SUSTAINED AROUND 88% ON ROOM AIR WHILE SLEEPING.
[2016-12-29] VITALS (19 sets, daily range): BP systolic 87–146; BP diastolic 41–65; PULSE 55–105; RESP 15–39; TEMP 97.6–98.5; O2SAT 94–100
[2016-12-29 05:42] LABS: BASOPHILS # (AUTO) 0.1 T/MM3 (0-0.2); BASOPHILS % (AUTO) 0.9 % (0-2); EOSINOPHILS # (AUTO) 0.4 T/MM3 (0-0.5); EOSINOPHILS % (AUTO) 4.1 % (0-4); HCT - HEMATOCRIT 34.6 % (36-46); HGB - HEMOGLOBIN 10.8 GM/DL (12-16); IMMATURE GRANULOCYTE # (AUTO) 0.02 T/MM3 (0.00-0.03); IMMATURE GRANULOCYTE % (AUTO) 0.2 % (0.0-0.5); LYMPHOCYTES # (AUTO) 2.5 T/MM3 (1-4.8); MEAN CORPUSCULAR HGB 25.1 UUG (26-34); MEAN CORPUSCULAR HGB CONC(MCHC 31.2 GM/DL (31-37); MEAN CORPUSCULAR VOLUME 80.3 UM3 (80-100); MEAN PLATELET VOLUME 10.7 UM3 (9.4-12.4); MONOCYTES # (AUTO) 0.7 T/MM3 (0-0.8); MONOCYTES % (AUTO) 8.3 % (0-9.0); NEUTROPHILS % (AUTO) 57.5 % (33-66); RED BLOOD COUNT 4.31 M/MM3 (4.00-5.20); WBC - WHITE BLOOD COUNT 8.7 T/MM3 (4.5-11.0)
[2016-12-29 05:47] LABS: ANION GAP 11 MEQ/L (5-15); BUN/CREATININE RATIO 28 RATIO (6-26); CALCIUM 9.5 MG/DL (8.4-10.2); CHLORIDE 102 MEQ/L (98-107); CO2 - CARBON DIOXIDE 27 MEQ/L (22-30); CREATININE 0.9 MG/DL (0.7-1.2); GLOMERULAR FILTRATION RATE 59; GLUCOSE 124 MG/DL (65-110); POTASSIUM 3.9 MEQ/L (3.6-5); SODIUM 140 MEQ/L (134-144)
--- NOTE | 2016-12-29 08:30 | NUR ---
Eats well, up in chair. Complains of neck pain, states she does have chronic neck pain.
[2016-12-29] MEDS ORDERED: OMEPRAZOLE 20 MG CAPSULE PO SCH (09:00)
[2016-12-29] MEDS ORDERED: ASPIRIN *EC* 81mg TABLET PO SCH (09:00)
[2016-12-29] MEDS: LINAGLIPTIN 5 MG TABLET PO SCH (09:08)
[2016-12-29] MEDS: APIXABAN 5 MG TABLET PO SCH (09:08)
[2016-12-29] MEDS: MULTIVIT + MINERALS (OPTI-GEN) PO SCH (09:09)
[2016-12-29] MEDS: MULTIVITAMIN + MINERAL TABLET PO SCH (09:10)
[2016-12-29] MEDS: AMIODARONE 200 MG TABLET PO SCH (09:11)
[2016-12-29] MEDS: METOPROLOL XL 25 MG TABLET PO SCH (09:12)
[2016-12-29] MEDS: AMLODIPINE 5 MG TABLET PO SCH (09:12)
[2016-12-29] MEDS ORDERED: NITR0.4T SL (11:05)
--- NOTE | 2016-12-29 11:19 | DSPDOC ---
General Date Date DATE: 12/29/16 TIME: 11:06 Attending Physician Brandon Christensen MD Admitting Physician Brandon Christensen MD Consulting Physician Admitting Diagnosis atrial fibrillation Discharge Diagnosis PAfib Antiarrhythmic therapy chest pain CAD s/p PTCA/stent syncope HTN DSLD DM2 Procedures DATE OF PROCEDURE December 28, [address] Clark Schrader The patient is a very pleasant 89-year-old lady who was admitted with frequent PVCs and has been having increasing chest pressure and tightness and heaviness and was referred for further evaluation by cardiac catheterization and possible intervention. Informed consent was obtained after explaining the procedure and the potential risks to the patient who agreed to proceed with the procedure. PROCEDURE 1. Left heart catheterization. 2. Coronary angiography. 3. Left ventriculography. 4. Primary stent of mid LAD using a 2.5 x 12 mm drug-eluting Resolute Integrity stent. TECHNIQUE She was prepped and draped in the usual sterile techniques. 1% lidocaine was used for local anesthesia. Using modified Seldinger technique, arterial access was obtained into the right radial artery with placement of a 6-Armenian arterial sheath. Conscious sedation was performed using Versed and fentanyl. 3000 units of heparin, 300 mcg of nitroglycerin, and 2.5 mg of verapamil were given through the arterial sheath. Additional 2500 units of heparin was administered IV prior to intervention. She also received 600 mg of Plavix orally. LEFT VENTRICULOGRAPHY Left ventriculography in single-plane DE LEON shallow projection showed normal LV systolic function with ejection fraction of 65% with no mitral regurgitation or gradient across the aortic valve. LVEDP was about 20. CORONARY ANGIOGRAPHY Left main was free of significant lesions. Left anterior descending artery had 40% proximal stenosis and 90% mid stenosis. It was a medium caliber vessel which wrapped around the apex. Left circumflex artery had 80-90% proximal stenosis. There was another 60-70% stenosis distal to the origin of the first marginal. Right coronary artery was dominant with about 70% proximal stenosis. After reviewing the images we decided to proceed with intervention on LAD. A 6- Armenian [employer] left guide was advanced to the ostium of left main. A Runthrough wire was used to cross the lesion into distal LAD. A 2.5 x 12 mm drug-eluting Resolute Integrity stent was delivered to the lesion site where it was deployed by inflating the balloon to 14 atmospheres. Next, angiogram showed excellent results with no residual stenosis. The patient tolerated the procedure well with no complications. IMPRESSION 1. Multivessel coronary artery disease as described above. 2. Normal LV systolic function with ejection fraction of 65%. 3. Successful primary stent of mid LAD using a 2.5 x 12 drug-eluting Resolute Integrity stent. PLAN Will continue her on dual antiplatelet therapy. The patient is not a candidate for coronary artery bypass graft with advanced age. Will schedule her to undergo left circumflex and RCA percutaneous interventions in future. Laboratory Laboratory Tests Test 12/28/16 04:35 12/28/16 12:50 12/29/16 04:42 White Blood Count 7.2T/MM3 (4.5-11.0) 8.7T/MM3 (4.5-11.0) Red Blood Count 4.30M/MM3 (4.00-5.20) 4.31M/MM3 (4.00-5.20) Hemoglobin 10.9GM/DL (12-16) 10.8GM/DL (12-16) Hematocrit 33.8% (36-46) 34.6% (36-46) Mean Corpuscular Volume 78.6UM3 (80-100) 80.3UM3 (80-100) Mean Corpuscular Hemoglobin 25.3UUG (26-34) 25.1UUG (26-34) Mean Corpuscular Hemoglobin Concent 32.2GM/DL (31-37) 31.2GM/DL (31-37) RDW Standard Deviation 54.6FL (36.9-50.2) 58.5FL (36.9-50.2) Platelet Count 288T/MM3 (130-400) 287T/MM3 (130-400) Mean Platelet Volume 10.7UM3 (9.4-12.4) 10.7UM3 (9.4-12.4) Immature Granulocyte % (Auto) 0.4% (0.0-0.5) 0.2% (0.0-0.5) Neutrophils (%) (Auto) 38.6% (33-66) 57.5% (33-66) Lymphocytes (%) (Auto) 44.6% (23-45) 29.0% (23-45) Monocytes (%) (Auto) 10.1% (0-9.0) 8.3% (0-9.0) Eosinophils (%) (Auto) 5.1% (0-4) 4.1% (0-4) Basophils (%) (Auto) 1.2% (0-2) 0.9% (0-2) Absolute Immature Granulocyte (auto 0.03T/MM3 (0.00-0.03) 0.02T/MM3 (0.00-0.03) Absolute Neutrophils (auto) 2.8T/MM3 (1.8-7.7) 5.0T/MM3 (1.8-7.7) Absolute Lymphocytes (auto) 3.2T/MM3 (1-4.8) 2.5T/MM3 (1-4.8) Absolute Monocytes (auto) 0.7T/MM3 (0-0.8) 0.7T/MM3 (0-0.8) Absolute Eosinophils (auto) 0.4T/MM3 (0-0.5) 0.4T/MM3 (0-0.5) Absolute Basophils (auto) 0.1T/MM3 (0-0.2) 0.1T/MM3 (0-0.2) Turbidity < 20 (0-20) < 20 (0-20) Sodium Level 141MEQ/L (134-144) 140MEQ/L (134-144) Potassium Level 3.9MEQ/L (3.6-5) 3.9MEQ/L (3.6-5) Chloride Level 102MEQ/L (98-107) 102MEQ/L (98-107) Carbon Dioxide Level 26MEQ/L (22-30) 27MEQ/L (22-30) Anion Gap 13MEQ/L (5-15) 11MEQ/L (5-15) Blood Urea Nitrogen 23.0MG/DL (7-17) 25.0MG/DL (7-17) Creatinine 0.9MG/DL (0.7-1.2) 0.9MG/DL (0.7-1.2) Glomerular Filtration Rate Calc 59 59 BUN/Creatinine Ratio 26RATIO (6-26) 28RATIO (6-26) Glucose Level 121MG/DL (65-110) 124MG/DL (65-110) Calculated Osmolality 276MOSM/KG (261-280) 274MOSM/KG (261-280) Calcium Level 10.1MG/DL (8.4-10.2) 9.5MG/DL (8.4-10.2) Icterus Index < 2 (0-7) < 2 (0-7) Chemistry Specimen Hemolysis < 15 (0-25) < 15 (0-25) < 15 (0-25) Troponin I < 0.012ng/ml (0-0.12) Radiology DATE OF EXAM: 12/27/16 ORDERING DOCTOR: SOURAV FERRELL MD TYPE OF EXAM: CHEST 1 VIEW REASON FOR EXAM: CHEST PRESSURE Indication: ITS.REASON: CHEST PRESSURE PROCEDURE: CHEST 1 VIEW: Encounter: Initial Comparison: September 19, 2011 FINDINGS: The lungs are clear. There is no abnormal airspace opacity, pleural effusion or pneumothorax identified. The heart size, pulmonary vasculature and mediastinum are within normal limits. No significant skeletal abnormality is seen. IMPRESSION: No acute cardiopulmonary abnormality. History of Present Illness Jaye is an 89 year old female who is well known to Dr. Christensen with a history of precordial pain the past couple of days, syncope and collapse, paroxysmal atrial fibrillation, HTN, HLD and DM type II who presented to ED today for evaluation of lightheadedness and presyncope. She states that she has had trouble with this over the last 2 weeks. Has seen both her PCP and Dr Christensen for this. Just saw him in clinic yesterday. [place] [facility] [place] antiarrhythmic therapy on Flecainide. She will also have a nuclear med stress test and some other testing. She does have a LINQ monitor implanted and had it interrogated yesterday. LINQ monitor showed irregular heart rate. She takes Eliquis. She does have a history of frequent PVC. She has had this same trouble in the past about 2 years ago but it went away for awhile and has recently returned. Today she feels like it was a little different. Started in her chest and she had pain in the back of her neck. Did feel like her vision was going black but did not every pass out. She also did have a mild headache in the frontal aspect of her head. She did also have some mild chest pressure. Upon arrival to ED she was given a nitro x1 and all of her symptoms have resolved at this time. She was examined in her room on the Medical floor. She will start Flecainide and have continuous telemetry monitoring overnight with EKG tomorrow at noon. Objective Vital Signs Vital signs Vital Signs 12/29/16 12/29/16 12/29/16 12/29/16 00:00 00:21 01:04 02:01 Pulse 62 62 62 Resp 18 26 16 20 B/P 113/53 98/46 146/65 Pulse Ox 94 97 97 O2 Delivery Nasal Cannula Nasal Cannula Nasal Cannula O2 Flow Rate 1.00 1.00 1.00 12/29/16 12/29/16 12/29/16 12/29/16 03:01 03:22 03:26 04:01 Temp 97.6 Pulse 61 62 Resp 15 18 22 B/P 143/63 129/46 Pulse Ox 100 96 O2 Delivery Nasal Cannula Nasal Cannula O2 Flow Rate 1.00 1.00 12/29/16 12/29/16 05:02 06:01 Pulse 67 82 Resp 23 39 B/P 121/56 115/50 Pulse Ox 99 97 O2 Delivery Nasal Cannula Nasal Cannula O2 Flow Rate 1.00 1.00 Telemetry Rhythm: Sinus Rhythm Telemetry Ectopy: PVC, [place] Height (Feet): 5 Height (Inches): 4.00 Weight (Kilograms): 71.200 General Alert, Cooperative Eyes (Brief) EOMI ENMT (Brief) mucosa moist Respiratory (Brief) clear all mcelroy, equal bilaterally Cardiovascular (Brief) murmur (2/6), regular rhythm, NOT FOUND: peripheral edema Capillary Refill: <2 sec Abdomen (Brief) BS normo active x4, soft Extremities (Brief) Extremity : Comments right radial cath site w/o redness, swelling, drainage or thrill Integumentary (Brief) dry, pink, warm Laboratory Laboratory Laboratory Tests Test 12/27/16 11:36 12/27/16 11:40 12/27/16 12:40 12/28/16 04:35 Magnesium Level 1.5MG/DL Thyroid Stimulating Hormone (TSH) 1.82MIU/L White Blood Count 8.0T/MM3 7.2T/MM3 Red Blood Count 4.46M/MM3 4.30M/MM3 Hemoglobin 11.3GM/DL 10.9GM/DL Hematocrit 35.1% 33.8% Mean Corpuscular Volume 78.7UM3 78.6UM3 Mean Corpuscular Hemoglobin 25.3UUG 25.3UUG Mean Corpuscular Hemoglobin Concent 32.2GM/DL 32.2GM/DL RDW Standard Deviation 54.6FL 54.6FL Platelet Count 298T/MM3 288T/MM3 Mean Platelet Volume 10.1UM3 10.7UM3 Immature Granulocyte % (Auto) 0.4% 0.4% Neutrophils (%) (Auto) 53.1% 38.6% Lymphocytes (%) (Auto) 30.9% 44.6% Monocytes (%) (Auto) 9.9% 10.1% Eosinophils (%) (Auto) 4.4% 5.1% Basophils (%) (Auto) 1.3% 1.2% Absolute Immature Granulocyte (auto 0.03T/MM3 0.03T/MM3 Absolute Neutrophils (auto) 4.2T/MM3 2.8T/MM3 Absolute Lymphocytes (auto) 2.5T/MM3 3.2T/MM3 Absolute Monocytes (auto) 0.8T/MM3 0.7T/MM3 Absolute Eosinophils (auto) 0.4T/MM3 0.4T/MM3 Absolute Basophils (auto) 0.1T/MM3 0.1T/MM3 Prothromb Time International Ratio 1.13 D-Dimer < 150NG/ML Turbidity < 20 < 20 Sodium Level 144MEQ/L 141MEQ/L Potassium Level 4.3MEQ/L 3.9MEQ/L Chloride Level 101MEQ/L 102MEQ/L Carbon Dioxide Level 28MEQ/L 26MEQ/L Anion Gap 15MEQ/L 13MEQ/L Blood Urea Nitrogen 25.0MG/DL 23.0MG/DL Creatinine 1.0MG/DL 0.9MG/DL Glomerular Filtration Rate Calc 52 59 BUN/Creatinine Ratio 25RATIO 26RATIO Glucose Level 85MG/DL 121MG/DL Calculated Osmolality 280MOSM/KG 276MOSM/KG Calcium Level 10.0MG/DL 10.1MG/DL Icterus Index < 2 < 2 Troponin I < 0.012ng/ml WO-Inn-Y-Type Natriuretic Peptide 283PG/ML Chemistry Specimen Hemolysis < 15 < 15 Urine Collection Type Cleancatch-midstream Urine Color Yellow Urine Turbidity Clear Urine pH 5.5 Urine Specific [place] <=1.005 Urine Protein Negative Urine Glucose (UA) Negative Urine Ketones Negative Urine Blood Negative Urine Nitrite Negative Urine Bilirubin Negative Urine Urobilinogen 0.2EU/DL Urine Leukocyte Esterase Negative Urinalysis Comment Microscopic not ind. Test 12/28/16 12:50 12/29/16 04:42 Troponin I < 0.012ng/ml Chemistry Specimen Hemolysis < 15 < 15 White Blood Count 8.7T/MM3 Red Blood Count 4.31M/MM3 Hemoglobin 10.8GM/DL Hematocrit 34.6% Mean Corpuscular Volume 80.3UM3 Mean Corpuscular Hemoglobin 25.1UUG Mean Corpuscular Hemoglobin Concent 31.2GM/DL RDW Standard Deviation 58.5FL Platelet Count 287T/MM3 Mean Platelet Volume 10.7UM3 Immature Granulocyte % (Auto) 0.2% Neutrophils (%) (Auto) 57.5% Lymphocytes (%) (Auto) 29.0% Monocytes (%) (Auto) 8.3% Eosinophils (%) (Auto) 4.1% Basophils (%) (Auto) 0.9% Absolute Immature Granulocyte (auto 0.02T/MM3 Absolute Neutrophils (auto) 5.0T/MM3 Absolute Lymphocytes (auto) 2.5T/MM3 Absolute Monocytes (auto) 0.7T/MM3 Absolute Eosinophils (auto) 0.4T/MM3 Absolute Basophils (auto) 0.1T/MM3 Turbidity < 20 Sodium Level 140MEQ/L Potassium Level 3.9MEQ/L Chloride Level 102MEQ/L Carbon Dioxide Level 27MEQ/L Anion Gap 11MEQ/L Blood Urea Nitrogen 25.0MG/DL Creatinine 0.9MG/DL Glomerular Filtration Rate Calc 59 BUN/Creatinine Ratio 28RATIO Glucose Level 124MG/DL Calculated Osmolality 274MOSM/KG Calcium Level 9.5MG/DL Icterus Index < 2 Laboratory Tests 12/29/16 04:42 Laboratory Tests 12/29/16 04:42 EKG SR with RBBB; no acute ischemic changes; QT/QTc 475/476 Medications Current Medications Medications (Trade) Dose Ordered Sig/Sebastien Start Time Stop Time Status Last Admin Dose Admin Flecainide Acetate (Tambocor) 50 mg Q12HR 12/27/16 14:30 12/28/16 14:44 DC 12/28/16 09:23 50 MG Amlodipine Besylate (Norvasc) 5 mg DAILY 12/28/16 09:00 12/29/16 09:12 5 MG Linagliptin (Tradjenta) 5 mg DAILY 12/28/16 09:00 12/29/16 09:08 5 MG Metformin HCl (Glucophage) 1,000 mg BIDWM 12/27/16 18:30 12/28/16 14:44 DC 12/28/16 09:22 1,000 MG Metoprolol Succinate (Toprol Xl) 25 mg DAILY 12/28/16 09:00 12/29/16 09:12 25 MG Multivitamins/ Minerals (Therapeutic - M) 1 tab DAILY 12/28/16 09:00 12/29/16 09:10 1 TAB Omeprazole (Prilosec) 40 mg DAILY 12/28/16 09:00 12/29/16 07:45 DC 12/28/16 08:10 40 MG Pravastatin Sodium (Pravachol) 40 mg HS 12/27/16 22:00 12/28/16 21:07 40 MG Sucralfate (Carafate) 1 g HS 12/27/16 22:00 12/28/16 21:07 1 G Trazodone HCl (Desyrel) 50 mg HS 12/27/16 22:00 12/28/16 21:07 50 MG Multivitamins/ Minerals (Vision) 1 tab DAILY 12/28/16 09:00 12/29/16 09:09 1 TAB Apixaban (Eliquis) 2.5 mg BID 12/27/16 21:00 12/29/16 09:08 2.5 MG Nitroglycerin (Nitrostat) 0.4 mg Q5MIN PRN 12/28/16 12:30 12/29/16 06:41 DC 12/28/16 12:46 0.4 MG Atropine Sulfate (ATROPINE 1mg INJ) 0.5 mg Q5M PRN 12/28/16 14:45 Acetaminophen (Tylenol Regular Strength) 325-650 mg Q5H PRN 12/28/16 14:45 Promethazine HCl (Phenergan) 12.5-25 mg Q6H PRN 12/28/16 14:45 Nitroglycerin (Nitrostat) 0.4 mg Q5MIN PRN 12/28/16 14:45 Magnesium Hydroxide (Mom) 30 ml DAILY PRN 12/28/16 14:45 Bisacodyl (Dulcolax) 10 mg DAILY PRN 12/28/16 14:45 Bisacodyl (Dulcolax) 5-10 mg DAILY PRN 12/28/16 14:45 Al Hydroxide/Mg Hydroxide (Maalox) 30 ml Q3H PRN 12/28/16 14:45 Lorazepam (Ativan) 0.5-1 mg Q4H PRN 12/28/16 14:45 Lorazepam (Ativan) 0.5-1 mg Q4H PRN 12/28/16 14:45 Metoclopramide HCl (REGLAN Inj) 5-10 mg Q6H PRN 12/28/16 14:45 Ondansetron HCl (Zofran) 4 mg Q6H PRN 12/28/16 14:45 Amiodarone HCl (Pacerone) 400 mg BID 12/28/16 15:15 01/03/17 21:00 12/29/16 09:11 400 MG Amiodarone HCl (Pacerone) 200 mg DAILY 01/04/17 09:00 Aspirin (Ecotrin) 81 mg DAILY 12/29/16 09:00 12/29/16 09:12 81 MG Omeprazole (Prilosec) 40 mg ACB 12/29/16 09:00 12/29/16 10:49 40 MG Clopidogrel Bisulfate (Plavix) 75 mg DAILY 12/30/16 09:00 Hospital Course (1) Syncope and collapse Status: Acute Assessment & Plan: Near syncope. Constant feeling of near syncope over the past couple of days, reports seeing black spots and feeling as if she would faint. Chlorthalidone was stopped yesterday (2) Paroxysmal atrial fibrillation Status: Chronic Assessment & Plan: antiarrhythmic therapy on Flecainide. She takes Eliquis (3) Presence of other cardiac implants and grafts Status: Chronic Assessment & Plan: showed irregular heart rate (4) Essential (primary) hypertension Status: Chronic Assessment & Plan: continue current therapy (5) Mixed hyperlipidemia Status: Chronic Assessment & Plan: PCP manages (6) Type 2 diabetes mellitus without complications Status: Chronic Qualifiers: Diabetes mellitus termite inspector insulin use: unspecified termite inspector insulin use status Qualified Codes: E11.9 - Type 2 diabetes mellitus without complications Assessment & Plan: PCP manages Code Status Full Code, unverified 12/29/16 Had successful PTCA/stent of LAD yesterday. Right radial cath site w/ o redness, drainage, swelling or thrill. In SR with stable vitals. Has some mild chest discomfort and feels slightly lightheaded but EKG w/o acute ischemic changes. Instructed on importance of taking daily ASA and Plavix and to not stop w/o prior instruction from Dr. Christensen. Same instructions given for Amiodarone -- is to take 400mg bid x 5 days then decrease to 200mg daily; continue eliquis. Our office will call pt for f/u appt with Dr. Christensen to be seen in 1-2 weeks. Go to ER if has severe chest pain or other emergent concerns. Labs stable. Problems: (1) Syncope and collapse Status: Acute (2) Paroxysmal atrial fibrillation Status: Chronic (3) Presence of other cardiac implants and grafts Status: Chronic (4) Essential (primary) hypertension Status: Chronic (5) Mixed hyperlipidemia Status: Chronic (6) Type 2 diabetes mellitus without complications Status: Chronic Code Status Full Code, unverified Home Meds Reported Medications Vit C/Vit E/Lutein/Min/Arnold-3 (Ocuvite Softgel) 1 Each Capsule, 1 CAP PO DAILY 12/27/16 Folic Acid (Folic Acid) Unknown Strength Tablet, PO DAILY 12/27/16 Multivitamin (Multivitamins) 1 Each Tablet, 1 TAB PO DAILY 12/27/16 Calcium Carbonate (Calcium) Unknown Strength Tablet, PO DAILY 12/27/16 Apixaban (Eliquis) 2.5 Mg Tablet, 2.5 MG PO BID 12/27/16 Amlodipine Besylate (Amlodipine Besylate) 10 Mg Tablet, 5 MG PO DAILY 12/19/16 Trazodone HCl (Trazodone HCl) 50 Mg Tablet, 50 MG PO HS 12/18/16 Linagliptin (Tradjenta) 5 Mg Tablet, 5 MG PO DAILY 12/18/16 Metoprolol Succinate (Metoprolol Succinate) 25 Mg Tab.er.24h, 25 MG PO DAILY, TAB 12/11/16 Pravastatin Sodium (Pravastatin Sodium) 40 Mg Tablet, 40 MG PO HS 08/24/14 Omeprazole (Omeprazole) 40 Mg Capsule.dr, 40 MG PO DAILY 08/24/14 Sucralfate (Carafate) 1 G Tablet, 1 G PO HS 11/26/12 Metformin Hcl (Glucophage) 500 Mg Tablet, 1000 MG PO BID 11/05/09 Discharge Disposition home to self care with spouse BISHOPILANSHAYE Gifford APRN December 29, 2016 11:10
[2016-12-29] MEDS ORDERED: CLOP75TA PO (12:33)
[2016-12-29] MEDS ORDERED: AMIO200T7 PO ×2 (12:42→13:18)
[2016-12-29] MEDS ORDERED: ASPI-914 PO ×2 (12:59→13:01)
--- NOTE | 2016-12-29 13:55 | NUR ---
Dismissed home with after dismissed by Danielle OCHOA. Instructions given, information given. New meds called in to Pharmacy. VSS.
[2016-12-30] MEDS ORDERED: CLOPIDOGREL 75 MG TABLET PO SCH (09:00)
[2017-01-04] MEDS ORDERED: AMIODARONE 200 MG TABLET PO SCH (09:00)
== END 2016-12-29 13:55 | disposition home or self-care (01) | DRG 247 ==
LOC: ED 11:00 → EDHOLD 13:18 → MED 13:40 → CCU 12-28 14:50 → OBSVTOIN 12-28 18:36
PROVIDERS: ADMIT Internal Medicine Cardiovascular Disease; ATTEND Internal Medicine Cardiovascular Disease
PROC: 027034Z Dilation of Coronary Artery, One Artery with Drug-eluting Intraluminal Device, Percutaneous Approach (ICD-10-PCS; principal; 2016-12-28)
PROC: 4A023N7 Measurement of Cardiac Sampling and Pressure, Left Heart, Percutaneous Approach (ICD-10-PCS; 2016-12-28)
PROC: B215YZZ Fluoroscopy of Left Heart using Other Contrast (ICD-10-PCS; 2016-12-28)
PROC: B211YZZ Fluoroscopy of Multiple Coronary Arteries using Other Contrast (ICD-10-PCS; 2016-12-28)
DX: I48.0 Paroxysmal atrial fibrillation (principal); R55 Syncope and collapse; E11.9 Type 2 diabetes mellitus without complications; I10 Essential (primary) hypertension; I25.10 Atherosclerotic heart disease of native coronary artery without angina pectoris; E78.2 Mixed hyperlipidemia
CPT/HCPCS: 36415; 80048; 80061; 81003; 83735; 83880; 84443; 84484; 85025; 85379; 85610; 93005; 93458; 99218

== ENCOUNTER 2017-01-06 23:15 | Emergency (ER) | payer MEDICARE, OTHER ==
[~2017-01-06] VITALS: Ht 162.6 cm; Wt 73.6 kg
[~2017-01-06 23:15] MED LIST changes: +AMIO200T7 PO; -AMLO5TAB2 PO; -ANTI1CAP2 PO; +APIX2.5T PO; -ASPI-725 PO; +ASPI-914 PO; +CALC-52 PO; -CHLO25TA2 PO; +CLOP75TA PO; +FOLI0.8T PO; -MULT-934 PO; +MULT1TAB69 PO; +NITR0.4T SL; -OMEG1CAP17 PO; -RIVA1TAB; -RIVA20TA PO; +VIT1CAPS21 PO; -[UNRECOGNIZED DRUG - CODE] PO
--- OUTSIDE RECORDS SUMMARY | 2017-01-06 23:19 | XMS REPORT | Continuity of Care Document ---
Author Author [facility] Organization [facility] Address Unknown Phone Unavailable Support Name Relationship Address Phone ABDOULAYE NINO MD Caregiver [address] [place] [address] [place] [address] Unavailable ABDOULAYE NINO MD Caregiver [address] [place] [address] Unavailable SOURAV FERRELL MD Caregiver [address] [place] [address] Unavailable SONIDO SEWELL DO Caregiver [address] [place] [address] Unavailable WILLIAM DESHPANDE Next Of Kin [address] [place], [place] [phone] Insurance Providers Guarantor Ursula Perez E Address [address] [id number] Email [email or web address] Payer [place] Policy Number [id number] Subscriber's Name Ursula Perez Relationship 18 Self Group Number [id number] Payer Medicare Policy Number [id number] Subscriber's Name Ursula Perez Relationship 18 Self Advance Directives Directive Response Recorded Date/Time Ordered Resuscitation Status Full Code, unverified 12/27/16 1:18pm Resuscitation Documents on File No 12/27/16 1:49pm DPOA for Healthcare Only Y SON-WILLIAM JERAMY 12/27/16 5:23pm Living Will Yes 12/27/16 1:49pm Problems Active Problems Medical Problem Onset Date Status Essential (primary) hypertension Unknown Chronic Mixed hyperlipidemia Unknown Chronic Paroxysmal atrial fibrillation Unknown Chronic Syncope and collapse Unknown Acute Type 2 diabetes mellitus without complications Unknown Chronic Surgical Problem Onset Date Status Presence of other cardiac implants and grafts Unknown Chronic Past Problems Medical Problem Onset Date Atrial fibrillation Unknown Dehydration Unknown Palpitation Unknown Medications Current Home Medications Medication Dose Units Route Directions Days Qty Instructions Start Date Amiodarone Hcl (Pacerone) 200 Mg Tablet 200 Mg Oral Daily 30 Days 30 Tablet START taking 1 pill ONCE a day on 01/04/17 12/29/16 Amiodarone Hcl (Pacerone) 200 Mg Tablet 400 Mg Oral Twice A Day 7 Days 28 Tablet 12/29/16 Amlodipine Besylate 10 Mg Tablet 5 Mg Oral Daily 12/19/16 Apixaban (Eliquis) 2.5 Mg Tablet 2.5 Mg Oral Twice A Day 12/27/16 Aspirin (Low Dose Aspirin Ec) 81 Mg Tablet. 1 Tab Oral Daily 30 Days 30 Tablet 12/29/16 Calcium Carbonate (Calcium) Unknown Strength Tablet Unknown Dose Oral Daily 12/27/16 Clopidogrel Bisulfate (Plavix) 75 Mg Tablet 75 Mg Oral Daily 30 Days 30 Tablet 12/29/16 Folic Acid Unknown Strength Tablet Unknown Dose Oral Daily Linagliptin (Tradjenta) 5 Mg Tablet 5 Mg Oral Daily 12/18/16 Metformin Hcl (Glucophage) 500 Mg Tablet 1,000 Mg Oral Twice A Day 11/05/09 Metoprolol Succinate 25 Mg Tab.er.24h 25 Mg Oral Daily 12/11/16 Multivitamin (Multivitamins) 1 Each Tablet 1 Tab Oral Daily 12/27 Nitroglycerin (Nitrostat) 0.4 Mg Tablet 0.4 Mg Sublingual Every 5 Minutes X 3 as needed for Angina 1 Bottle 12/29/16 Omeprazole 40 Mg Capsule. 40 Mg Oral Daily 08/24/14 Pravastatin Sodium 40 Mg Tablet 40 Mg Oral Bedtime 08/24/14 Sucralfate (Carafate) 1 G Tablet 1 G Oral Bedtime 11/26/12 Trazodone Hcl 50 Mg Tablet 50 Mg Oral Bedtime 12/18/16 Vit C/Vit E/Lutein/Min/[place]-3 (Ocuvite Softgel) 1 Each Capsule 1 Cap Oral Daily 12/27/16 Past Home Medications Medication Directions Ordered Status Acetaminophen/Dp-Hydram Hcl (Tylenol Pm Ex-Str Caplet) 1 Tab Tablet, 1 Tab Oral Bedtime 02/19/11 Discontinued Amlodipine Besylate 10 Mg Tablet, 10 Mg Oral Daily 08/24/14 Discontinued Aspirin (Low Dose Aspirin Ec) 81 Mg Tablet., 1 Tab Oral Daily 12/29/16 Discontinued Benzonatate 100 Mg Capsule, 100 Mg [...] Applicable Not Applicable Hx Substance Use No 12/27/2016 11:47am Not Applicable Not Applicable Hx Alcohol Use No 12/27/2016 11:47am Not Applicable Not Applicable Has the pt used tobacco in the last 12 months No 12/27/2016 1:56pm Not Applicable Not Applicable Query Response Start Date Stop Date Smoking Status Never smoker Hospital Discharge Instructions No hospital discharge instructions. Plan of Care Discharge Date 12/29/16 1:55pm Disposition 01 DISCHARGED HOME, SELF-CARE Instructions/Education Provided [facility] Heart Cath Trans Rad Prescriptions See Medication Section Additional Instructions/Education NOT to take metformin until 12/31/16 Functional Status Query Response Date Recorded Mobility Status Ambulatory December 27, 2016 1:45pm Assistive Devices None December 27, 2016 1:45pm Activity Limitations Shortness of breath December 27, 2016 1:45pm Feeding Ability Independent December 27, 2016 1:45pm Toileting Ability Independent December 27, 2016 1:45pm Grooming Ability Independent December 27, 2016 1:45pm Dressing Ability Independent December 27, 2016 1:45pm Driving Ability Independent December 27, 2016 1:45pm Housework Ability Independent December 27, 2016 1:45pm Meal Preparation Ability Independent December 27, 2016 1:45pm Stair Climbing Ability Independent December 27, 2016 1:45pm Ability to complete ADL's impeded by No change December 27, 2016 1:49pm Cognitive/Perceptual Impairments Impaired vision December 27, 2016 1:45pm Visual Assistive Devices Glasses With patient December 27, 2016 1:45pm Preferred Method of Learning Reading Listening December 27, 2016 1:45pm Allergies, Adverse Reactions, Alerts Allergen Type Severity Reaction Status Last Updated oxycodone HCl Adverse Reaction Intermediate ABDOMINAL PAIN Active 12/27/16 losartan potassium Allergy Unknown Active 12/27/16 Sulfa (Sulfonamide Antibiotics) Allergy Intermediate HIVES Active 12/27/16 Lisinopril Adverse Reaction Unknown COUGH Active 12/27/16 Morphine Allergy Intermediate red and hives all over Active 12/27/16 Aspirin Adverse Reaction Intermediate UPSETS STOMACH Active 12/27/16 Tetracycline Adverse Reaction Intermediate terrible pain in stomach Active 12/27/16 Sulfamethoxazole Allergy Intermediate hives Active 12/27/16 Trimethoprim Allergy Unknown Active 12/27/16 Simvastatin Allergy Unknown MYALGIA Active 12/27/16 Atorvastatin Allergy Unknown MYALGIA Active 12/27/16 Immunizations Query Response on File Recorded Date/Time Hx Influenza Vaccination Y Apr 2016 12/27/16 1:56pm Hx Pneumococcal Vaccination Y Apr 2016 12/27/16 1:56pm Hx Influenza Vaccination Y Apr 2016 12/27/16 1:56pm Influenza Vaccine Hx fall 201512/28/16 3:45pm Vital Signs Acute Vital Signs Vital Response Date/Time Temperature (Fahrenheit) 98.5 deg F (96.8 - 99.1) 12/29/2016 12:00pm Temperature (Calculated Celsius) 36.74036 degrees C (36.0 - 37.3) 12/29/2016 12:00pm Temperature Source Oral 12/29/2016 12:00pm Pulse Rate (adult) 55 bpm (60 - 100) 12/29/2016 12:00pm Respiratory Rate 17 breaths/min (10 - 20) 12/29/2016 12:00pm O2 Sat by Pulse Oximetry 95 % (90 - 100) 12/29/2016 12:00pm Oxygen Delivery Method Nasal Cannula 12/29/2016 6:01am Oxygen Delivery Method Room Air 12/28/2016 9:29pm Oxygen Flow Rate 1.00 L/min 12/29/2016 6:01am Blood Pressure 128/62 mm Hg 12/29/2016 9:34am Blood Pressure Source Automatic Cuff 12/29/2016 6:01am Height (Feet) 5 feet 12/29/2016 11:19am Height (Inches) 4.00 inches 12/29/2016 11:19am Weight (Kilograms) 71.200 kg 12/28/2016 8:01am Body Mass Index (BMI) 28.3 12/27/2016 1:48pm Results Laboratory Results Test Name Result Units Flags Reference Collection Date/Time Result Date/ Time Comments Glucometer 123 mg/dL H 65-110 12/19/2016 6:45am 12/19/2016 6:49am Total Bilirubin 0.30 MG/DL 0.20-1.30 12/19/2016 8:27pm 12/19/2016 8: 42pm Alkaline Phosphatase 102 U/L 38-126 12/19/2016 8:pm 12/19/2016 8: 42pm Total Protein 7.4 G/DL 6.3-8.2 12/19/2016 8:27pm 12/19/2016 8:42pm Albumin 4.3 G/DL 3.5-5.0 12/19/2016 8:12/19/2016 8:42pm Globulin 3.1 G/DL 2.4-3.6 12/19/2016 8:12/19/2016 8:42pm Albumin/Globulin Ratio 1.4 RATIO 1.1-2.2 12/19/2016 8:12/19/2016 8 :42pm Aspartate Amino Transf (AST/SGOT) 47 U/L H 14-36 12/19/2016 8:27pm 12/19 8:42pm Alanine Aminotransferase (ALT/SGPT) 59 U/L H 9-52 12/19/2016 8:pm 05/2017 8:42pm White Blood Count 8.7 T/MM3 4.5-11.0 12/29/2016 4:42am 12/29/2016 5: 42am Red Blood Count 4.31 M/MM3 4.00-5.20 12/29/2016 4:42am 12/29/2016 5: 42am Hemoglobin 10.8 GM/DL L 12-16 12/29/2016 4:42am 12/29/2016 5:42am Hematocrit 34.6 % L 36-46 12/29/2016 4:42am 12/29/2016 5:42am Mean Corpuscular Volume 80.3 UM3 80-100 12/29/2016 4:42am 12/29/2016 5: 42am Mean Corpuscular Hemoglobin 25.1 UUG L 26-34 12/29/2016 4:42am 2016 5:42am Mean Corpuscular Hemoglobin Concent 31.2 GM/DL 31-37 12/29/2016 4:42am 12/29/2016 5:42am RDW Standard Deviation 58.5 FL H 36.9-50.2 12/29/2016 4:42am 12/29/2016 5:42am Platelet Count 287 T/MM3 130-400 12/29/2016 4:42am 12/29/2016 5:42am Mean Platelet Volume 10.7 UM3 9.4-12.4 12/29/2016 4:42am 12/29/2016 5: 42am Neutrophils (%) (Auto) 57.5 % 33-66 12/29/2016 4:42am 12/29/2016 5: 42am Lymphocytes (%) (Auto) 29.0 % 23-45 12/29/2016 4:42am 12/29/2016 5: 42am Monocytes (%) (Auto) 8.3 % 0-9.0 12/29/2016 4:42am 12/29/2016 5:42am Eosinophils (%) (Auto) 4.1 % H 0-4 12/29/2016 4:42am 12/29/2016 5:42am Basophils (%) (Auto) 0.9 % 0-2 12/29/2016 4:42am 12/29/2016 5:42am Immature Granulocyte % (Auto) 0.2 % 0.0-0.5 12/29/2016 4:42am 2016 5:42am Absolute Neutrophils (auto) 5.0 T/MM3 1.8-7.7 12/29/2016 4:42am 2016 5:42am Absolute Lymphocytes (auto) 2.5 T/MM3 1-4.8 12/29/2016 4:42am 2016 5:42am Absolute Monocytes (auto) 0.7 T/MM3 0-0.8 12/29/2016 4:42am 12/29/2016 5:42am Absolute Eosinophils (auto) 0.4 T/MM3 0-0.5 12/29/2016 4:42am 2016 5:42am Absolute Basophils (auto) 0.1 T/MM3 0-0.2 12/29/2016 4:42am 12/29/2016 5:42am Absolute Immature Granulocyte (auto 0.02 T/MM3 0.00-0.03 12/29/2016 4: 42am 12/29/2016 5:42am Prothromb Time International Ratio 1.13 H 0.77-1.03 12/27/2016 11:4012/27/2016 12:05pm THERAPUTIC RANGE=2.00-3.00 FOR ANTI-THROMBOSIS THERAPUTIC RANGE=2.50-3.50 FOR IMPLANTED VALVE D-Dimer < 150 NG/ML 0-230 12/27/2016 11:40am 12/27/2016 12:05pm <230 NG/ML D-DU=PRESUMPTIVE NEGATIVE FOR PE OR DVT >230 NG/ML D-DU=ADDITIONAL EVAL FOR PE OR DVT RECOMMENDED Icterus Index < 2 0-7 12/29/2016 4:42am 12/29/2016 5:47am Chemistry Specimen Hemolysis < 15 0-25 12/29/2016 4:42am 12/29/2016 5 :47am 0-25: Specimen Exhibited No Hemolysis. Turbidity < 20 0-20 12/29/2016 4:42am 12/29/2016 5:47am Sodium Level 140 MEQ/L 134-144 12/29/2016 4:42am 12/29/2016 5:47am Potassium Level 3.9 MEQ/L 3.6-5 12/29/2016 4:42am 12/29/2016 5:47am Chloride Level 102 MEQ/L 98-107 12/29/2016 4:42am 12/29/2016 5:47am Carbon Dioxide Level 27 MEQ/L 22-30 12/29/2016 4:42am 12/29/2016 5: 47am Anion Gap 11 MEQ/L 5-15 12/29/2016 4:42am 12/29/2016 5:47am Blood Urea Nitrogen 25.0 MG/DL H 7-17 12/29/2016 4:42am 12/29/2016 5: 47am Creatinine 0.9 MG/DL 0.7-1.2 12/29/2016 4:42am 12/29/2016 5:47am BUN/Creatinine Ratio 28 RATIO H 6-26 12/29/2016 4:42am 12/29/2016 5: 47am Glomerular Filtration Rate Calc 59 12/29/2016 4:42am 12/29/2016 5: 47am Glucose Level 124 MG/DL H 65-110 12/29/2016 4:42am 12/29/2016 5:47am Calculated Osmolality 274 MOSM/KG 261-280 12/29/2016 4:42am 12/29/2016 5:47am Calcium Level 9.5 MG/DL 8.4-10.2 12/29/2016 4:42am 12/29/2016 5:47am Troponin I < 0.012 ng/ml 0-0.12 12/28/2016 12:50pm 12/28/2016 1:29pm Troponin values with a difference of 55% increase from orginal troponin value represent a true biological DELTA value. (%increase Calc=Orginal Troponin value, divided by subsequent Troponin value, multiplied by 100) NI-Xnp-H-Type Natriuretic Peptide 283 PG/ML H 0-175 12/27/2016 11:40am 12/27/2016 12:14pm Rule in cut points: <50 years old=450; 50-75 years old=900; >75 years old=1800; When utilizing ProBNP rule-in cut points, adjustment for impaired renal function is typically not required. Magnesium Level 1.5 MG/DL L 1.6-2.3 12/27/2016 11:36am 12/27/2016 4: 18pm Thyroid Stimulating Hormone (TSH) 1.82 MIU/L 0.47-4.68 12/27/2016 11: 36am 12/27/2016 4:50pm Urine Collection Type CLEANCATCH-MIDSTREAM 12/27/2016 12:40pm 12/27 12:49pm Urine Color YELLOW YELLOW 12/27/2016 12:40pm 12/27/2016 12:49pm Urine Turbidity CLEAR CLEAR 12/27/2016 12:40pm 12/27/2016 12:49pm Urine Specific [place] <=1.005 L 1.015-1.025 12/27/2016 12:40pm 2016 12:49pm Urine pH 5.5 5.0-8.0 12/27/2016 12:40pm 12/27/2016 12:49pm Urine Leukocyte Esterase NEGATIVE NEGATIVE 12/27/2016 12:40pm 2016 12:49pm Urine Nitrite NEGATIVE NEGATIVE 12/27/2016 12:40pm 12/27/2016 12: 49pm Urine Protein NEGATIVE NEGATIVE 12/27/2016 12:40pm 12/27/2016 12: 49pm Urine Glucose (UA) NEGATIVE NEGATIVE 12/27/2016 12:40pm 12/27/2016 12 :49pm Urine Ketones NEGATIVE NEGATIVE 12/27/2016 12:40pm 12/27/2016 12: 49pm Urine Urobilinogen 0.2 EU/DL NORMAL 12/27/2016 12:40pm 12/27/2016 12: 49pm Urine Bilirubin NEGATIVE NEGATIVE 12/27/2016 12:40pm 12/27/2016 12: 49pm Urine Blood NEGATIVE NEGATIVE 12/27/2016 12:40pm 12/27/2016 12:49pm Urinalysis Comment MICROSCOPIC NOT IND. 12/27/2016 12:40pm 2016 12:49pm Name: URSULA PEREZ Unit #: [id number] : 1925 Sex: F Admit Date: Loc / Svc: ED Discharge Date: DIAGNOSTIC IMAGING REPORT Report #: [id number] [facility] ALEXIS Bryan Indication: ITS.REASON: CHEST PRESSURE PROCEDURE: CHEST 1 VIEW: Encounter: Initial Comparison: September 19, 2011 FINDINGS: The lungs are clear. There is no abnormal airspace opacity, pleural effusion or pneumothorax identified. The heart size, pulmonary vasculature and mediastinum are within normal limits. No significant skeletal abnormality is seen. IMPRESSION: No acute cardiopulmonary abnormality. . Procedures Procedure Status Date Provider(s) Colonoscopy w/lesion removal Completed 12/19/16 SONIDO SEWELL DO Reagent strip/blood glucose Completed 12/19/16501902"INJECTION, GLUCAGON HYDROCHLORIDE, PER 1 MG" Completed 12/19/16809934"INJECTION, MIDAZOLAM HYDROCHLORIDE, PER 1 MG" Completed 12/19/16037874"INJECTION, MIDAZOLAM HYDROCHLORIDE, PER 1 MG" Completed 12/19/16638925"INJECTION, FENTANYL CITRATE, 0.1 MG" Completed 12/19/16054887"RINGERS LACTATE INFUSION, UP TO 1000 CC" Completed 12/19/16 Comprehen metabolic panel Completed 12/19/16 Assay of troponin quant Completed 12/19/16 Complete cbc w/auto diff wbc Completed 12/19/16 Electrocardiogram tracing Completed 12/19/16 Hydration iv infusion init Completed 12/19/16 Emergency dept visit Completed 12/19/16 Encounters Encounter Location Arrival/Admit Date Discharge/Depart Date Attending Provider Discharged Inpatient [facility] 12/28/16 6:36pm 12/29/16 1:55pm ABDOULAYE NINO MD Departed Emergency Room [facility] 12/19/16 8:04pm 12/19/16 9: 37pm SONIDO CATALAN MD Departed Surgical Day Care [facility] 12/19/16 6:29am 12/19/16 10 :22am SONIDO SEWELL DO [facility] 12/11/16 8:50am SONIDO SEWELL DO
--- OUTSIDE RECORDS SUMMARY | 2017-01-06 23:19 | XMS REPORT | Continuity of Care Document ---
Author Author [facility] Organization [facility] Address Unknown Phone Unavailable Support Name Relationship Address Phone SONIDO SEWELL DO Caregiver [facility] [address] [place] [phone] WILLIAM DESHPANDE Next Of Kin [address] [place], [place] [id number] Insurance Providers Payer Name Policy Number Subscriber Name Relationship Medicare [id number] Ursula Perez 18 Self [place] [id number] Ursula Perez Self Advance Directives Directive Response [...] Mg PO DAILY 90 Qty 08/24/14 Active [place]-3 Acid Ethyl Esters 2 Cap PO TWICE [...] F (96.8 - 99.1) Temperature (Calculated Celsius) 36.74748 degrees C (36.0 - 37.3) Temperature Source [...] 25, 2012 9:57pm LAB TEST FORM REQUEST [id number] - Lipase November 25, 2012 4:24pm 90 [...] Has specimen been collected/obtained? Y Urine Specific [place] February 19, 2011 1:45pm 1.015 - Has [...]
[2017-01-06 23:20] VITALS: Ht 162.6 cm; Wt 73.6 kg
--- OUTSIDE RECORDS SUMMARY | 2017-01-06 23:23 | XMS REPORT | Continuity of Care Document ---
Author Author [facility] Organization [facility] Address Unknown Phone Unavailable Support Name Relationship Address Phone SONIDO SEWELL DO Caregiver [facility] [address] [place] [phone] WILLIAM DESHPANDE Next Of Kin [address] [place], [place] [phone] Insurance Providers Payer Name Policy Number Subscriber Name Relationship Medicare [id number] Ursula Perez 18 Self [place] [id number] Ursula Perez Self Advance Directives Directive Response [...] Mg PO DAILY 90 Qty 08/24/14 Active [place]-3 Acid Ethyl Esters 2 Cap PO TWICE [...] F (96.8 - 99.1) Temperature (Calculated Celsius) 36.95448 degrees C (36.0 - 37.3) Temperature Source [...] 25, 2012 9:57pm LAB TEST FORM REQUEST [id number] - Lipase November 25, 2012 4:24pm 90 [...] Has specimen been collected/obtained? Y Urine Specific [place] February 19, 2011 1:45pm 1.015 - Has [...] Esophagogastroduodenoscopy (EGD) with closed biopsy completed 08/25/14 OSNIDO SEWELL DO
[2017-01-06] MEDS ORDERED: NITROGLYCERIN 2% OINTMENT 1 G PACKET TOP ONE (23:30)
--- NOTE | 2017-01-06 23:31 | ERPDOC ---
Departure Disposition Decision Date: January 07, 2017 Disposition Decision Time: 00:45 Disposition: 01 DISCHARGED HOME, SELF-CARE Impression Impression Impression: Primary Impression: Angina effort Severity: Moderate Condition: Improved Seen By: Physician only Referrals: SONIDO SEWELL DO (Family) Patient Instructions: Angina (ED) Problems/Meds/Labs Reviewed?: Yes Medications reviewed and manag: Yes Additional Instructions: Double your Lasix first thing in the morning to help offload extra fluid For any recurrence or persistence of chest pain or heaviness, take one nitroglycerin up to 3 times over the course of 15 minutes and return to ER by ambulance if not resolved. Follow up care ordered?: Yes Mental Status: Alert HPI - Chest Pain General Stated Complaint: CHEST PAIN Time Seen by Provider: 23:19 Source: patient Exam Limitations: no limitations HPI - Chest Pain Initial Comments Patient presents with worsening dyspnea, peripheral lower STEMI edema, and chest heaviness. Patient had been having some chest heaviness and dyspnea associated with paroxysmal atrial fibrillation as well as coronary disease for several weeks. 10 -12 days ago the patient had coronary catheterization, and was found to have three-vessel coronary disease. One-vessel was stented, and plans were made to stent the other vessels a later time. At time the patient has had progressive worsening dyspnea, chest heaviness and tightness, and 3 days ago was started on Lasix with potassium. Symptoms did not improve and finally tonight felt as though she needed to take nitroglycerin. At home patient took 2 nitroglycerin to some relief, but when EMS arrived and gave her a third nitroglycerin her chest pain and pressure was completely resolved. Patient now has only complained of mild, that she is uncertain cause. Patient does have back and neck pain periodically, but this feels slightly differently. Occurred At: home Onset/Timing: Rapid, Gradual Duration: 4-6 hrs, 1 week Activities at Onset/Context: none Location: substernal Quality: pressure, squeezing, tightness Chest Pain Radiation: neck, back Nitro Today/Relief: 0.4 mg x 3, provided by EMS, provided at home Aspirin Treatment Today: contraindicated Prior Chest Pain/Cardiac Patricia: angina Hx of Similar Symptoms: Yes Allergies: Coded Allergies: Sulfa (Sulfonamide Antibiotics) (Verified Allergy, Intermediate, HIVES, ) morphine (Verified Allergy, Intermediate, red and hives all over, 12/27/16) sulfamethoxazole (Verified Allergy, Intermediate, hives, 12/27/16) atorvastatin (Unverified Allergy, Unknown, MYALGIA, 12/27/16) losartan potassium (Verified Allergy, Unknown, 12/27/16) simvastatin (Unverified Allergy, Unknown, MYALGIA, 12/27/16) trimethoprim (Verified Allergy, Unknown, 12/27/16) aspirin (Verified Adverse Reaction, Intermediate, UPSETS STOMACH, 12/27/16) oxycodone HCl (Verified Adverse Reaction, Intermediate, ABDOMINAL PAIN, ) tetracycline (Verified Adverse Reaction, Intermediate, terrible pain in stomach, 12/27/16) lisinopril (Verified Adverse Reaction, Unknown, COUGH, 12/27/16) Past History Past Medical History Metabolic: diabetes, hypercholesterolemia, hypertension Cardiac: A-fib, CAD GI: ulcers Surgical History General: appendix, gallbladder, tonsils Reproductive/: hysterectomy Family History Family PMH: FOUND: CAD Vaccines Hx Influenza Vaccination: Yes (Apr 2016) Hx Pneumococcal Vaccination: Yes (Apr 2016) Social History Smoking Status: Never smoker Does patient use chewing tobac: No Second Hand Exposure: No Substance Use Type: does not use Marital Status: Review of Systems Constitutional Constitutional: DENIES: appetite decrease, appetite increase, chills, dizziness , fever, weakness ENMT Ears: DENIES: pain Hearing: DENIES: hearing loss, tinnitus Balance: DENIES: vertigo Mouth/Throat: DENIES: change in swallowing, change in voice, hoarsness, painful swallowing, sore throat Cardiovascular Cardiac: chest pain, DENIES: dyspnea on exertion Rhythm/Rate: DENIES: irregular beat, palpitations, tachycardia Vascular: DENIES: pedal edema Pulmonary Respiratory: DENIES: cough, dyspnea, pleuritic chest pain GI Upper Abdomen: DENIES: dysphagia, heartburn/indigestion, nausea, pain, vomiting Lower Abdomen: DENIES: blood in stool, constipation, diarrhea, pain General: DENIES: burning, dysuria, frequency, pain, urgency Musculoskeletal General: DENIES: cramps, joint pain, joint swelling, pain, weakness Integumentary Skin: DENIES: rash, sores Neurological General: DENIES: headache, numbness, tingling, vertigo, weakness Physical Exam General General Nourishment: well nourished, well developed, appears stated age, no acute distress General Body Habitus: well groomed Vitals and Pain First Documented Vital Signs Date Time Temp Pulse Resp B/P Pulse Ox O2 Delivery O2 Flow Rate FiO2 01/06/17 23:20 97.8 71 18 170/72 93 Room Air Weight: Kilograms: Height (feet): 5 Height (inches): 4.00 Triage Pain Scale: RN VS reviewed by Provider: Yes Normal Exams: Head: Normocephalic w/o trauma Eyes: Pupils are PERRLA w/ EOMI, No scleral icterus, irritation, or foreign bodies noted ENMT: No facial trauma, nasal exudates, pharyngeal erythema, or exudates are noted Neck: Full range of motion, without adenopathy, JVD, bruits or thyromegaly Chest/Resp: Clear all mcelroy, with good airflow, and symmetry bilaterally CV: Regular rate and rhythm, without murmur or gallop, Pulses 2+ all extremities, capillary refill, <2 seconds all ext., no pedal edema noted Abdomen: Bowel sounds positive, soft, non-tender, non-distended, no hepatosplenomegaly, masses or bruits noted Lymphatic: No lymphadenopathy, or lymphedema noted Musculoskeletal: No tenderness, or deformity noted, good range of motion, all extremities Integumentary: No rashes, hives, or bruising noted, hair and nails, without abnormality Neurologic: Patient is alert, and oriented, cranial nerves, motor/sensory/ cerebellar, exams w/o gross deficits, to observation Psychiatric: Patient exhibits, appropriate attention, emotion and affect Progress Results/Orders Orders Procedure Category Date Status Time Cbc W/Auto LAB 01/06/17 Complete Diff-Reflex Manual 23:23 Cmp - Comprehensive LAB 01/06/17 Complete Metabolic 23:23 Probnp LAB 01/06/17 Complete 23:23 Troponin I W LAB 01/06/17 Complete Hemolysis Index 23:23 INR LAB 01/06/17 Complete 23:23 EKG EKG 01/06/17 Taken 23:23 Chest 1 View RAD 01/06/17 Taken 23:23 Iv Lock (Ed Only) EDM 01/06/17 Transmitted 23:23 Nitroglycerin PHA 01/06/17 Complete Ointment (Nitro-Bid) 23:30 Lab Results Laboratory Tests Test 01/06/17 23:33 White Blood Count 10.4T/MM3 Red Blood Count 4.33M/MM3 Hemoglobin 11.2GM/DL Hematocrit 35.3% Mean Corpuscular Volume 81.5UM3 Mean Corpuscular Hemoglobin 25.9UUG Mean Corpuscular Hemoglobin Concent 31.7GM/DL RDW Standard Deviation 62.7FL Platelet Count 317T/MM3 Mean Platelet Volume 10.6UM3 Immature Granulocyte % (Auto) 0.4% Neutrophils (%) (Auto) 58.0% Lymphocytes (%) (Auto) 28.7% Monocytes (%) (Auto) 8.9% Eosinophils (%) (Auto) 2.7% Basophils (%) (Auto) 1.3% Absolute Immature Granulocyte (auto 0.04T/MM3 Absolute Neutrophils (auto) 6.0T/MM3 Absolute Lymphocytes (auto) 3.0T/MM3 Absolute Monocytes (auto) 0.9T/MM3 Absolute Eosinophils (auto) 0.3T/MM3 Absolute Basophils (auto) 0.1T/MM3 Prothromb Time International Ratio 1.34 Turbidity < 20 Sodium Level 141MEQ/L Potassium Level 4.3MEQ/L Chloride Level 98MEQ/L Carbon Dioxide Level 28MEQ/L Anion Gap 15MEQ/L Blood Urea Nitrogen 29.0MG/DL Creatinine 1.1MG/DL Glomerular Filtration Rate Calc 47 BUN/Creatinine Ratio 26RATIO Glucose Level 89MG/DL Calculated Osmolality 276MOSM/KG Calcium Level 10.8MG/DL Total Bilirubin 0.50MG/DL Icterus Index < 2 Aspartate Amino Transf (AST/SGOT) 26U/L Alanine Aminotransferase (ALT/SGPT) 58U/L Alkaline Phosphatase 104U/L Troponin I < 0.012ng/ml OH-Ihq-O-Type Natriuretic Peptide 190PG/ML Total Protein 7.7G/DL Albumin 4.6G/DL Globulin 3.1G/DL Albumin/Globulin Ratio 1.5RATIO Chemistry Specimen Hemolysis < 15 Medications Current ED Medications Nitroglycerin (Nitro-Bid) 1 inch O ONCE TOP ; Start 01/06/17 at 23:30; Stop at 23:31; Status DC Progress Progress EKG shows normal sinus rhythm with lateral ST depression shown in V3 through V5 , this does appear worsened from previous study on 12/29, with monofocal PVC's 1 inch Nitropaste placed on the patient's chest - TO complete relief without recurrence CBC - N CMP - N Chest x-ray - N Troponin - N ProBNP - N Case discussed with Dr. Christensen, EKG reviewed by Dr. Christensen as well. Since the patient has had resolution of symptoms with nitroglycerin, patient appears to have stable angina at this time, and it's felt that she can be safely dismissed home to use nitroglycerin and return as needed. SONIDO CATALAN MD January 06, 2017 23:31
[2017-01-06 23:43] LABS: BASOPHILS # (AUTO) 0.1 T/MM3 (0-0.2); BASOPHILS % (AUTO) 1.3 % (0-2); EOSINOPHILS # (AUTO) 0.3 T/MM3 (0-0.5); EOSINOPHILS % (AUTO) 2.7 % (0-4); HCT - HEMATOCRIT 35.3 % (36-46); HGB - HEMOGLOBIN 11.2 GM/DL (12-16); IMMATURE GRANULOCYTE # (AUTO) 0.04 T/MM3 (0.00-0.03); IMMATURE GRANULOCYTE % (AUTO) 0.4 % (0.0-0.5); LYMPHOCYTES % (AUTO) 28.7 % (23-45); MEAN CORPUSCULAR HGB 25.9 UUG (26-34); MEAN CORPUSCULAR HGB CONC(MCHC 31.7 GM/DL (31-37); MEAN CORPUSCULAR VOLUME 81.5 UM3 (80-100); MEAN PLATELET VOLUME 10.6 UM3 (9.4-12.4); MONOCYTES # (AUTO) 0.9 T/MM3 (0-0.8); MONOCYTES % (AUTO) 8.9 % (0-9.0); RED BLOOD COUNT 4.33 M/MM3 (4.00-5.20); WBC - WHITE BLOOD COUNT 10.4 T/MM3 (4.5-11.0)
[2017-01-06 23:53] LABS: INR 1.34 (0.77-1.03); PROTHROMBIN TIME 14.7 SEC (9.48-12.52)
[2017-01-06 23:58] LABS: ALBUMIN 4.6 G/DL (3.5-5.0); ALBUMIN/GLOBULIN RATIO 1.5 RATIO (1.1-2.2); ALKALINE PHOSPHATASE 104 U/L (38-126); ALT (SGPT) 58 U/L (9-52); ANION GAP 15 MEQ/L (5-15); AST (SGOT) 26 U/L (14-36); BUN/CREATININE RATIO 26 RATIO (6-26); CALCIUM 10.8 MG/DL (8.4-10.2); CHLORIDE 98 MEQ/L (98-107); CO2 - CARBON DIOXIDE 28 MEQ/L (22-30); CREATININE 1.1 MG/DL (0.7-1.2); GLOMERULAR FILTRATION RATE 47; GLUCOSE 89 MG/DL (65-110); POTASSIUM 4.3 MEQ/L (3.6-5); SODIUM 141 MEQ/L (134-144); TOTAL PROTEIN 7.7 G/DL (6.3-8.2)
[2017-01-07 00:10] LABS: PROBNP 190 PG/ML (0-175)
[2017-01-07 01:00] VITALS: BP 145/67; PULSE 66; RESP 17; TEMP 97.8; O2SAT 87
--- NOTE | 2017-01-07 09:59 | DI ---
Indication: ITS.REASON: CHEST PAIN, DYSPNEA PROCEDURE: CHEST 1 VIEW: Encounter: Initial Comparison: December 27, 2016 FINDINGS: The lungs are clear. There is no abnormal airspace opacity, pleural effusion or pneumothorax identified. The heart size, pulmonary vasculature and mediastinum are stable. Cardiac monitoring device. IMPRESSION: No acute cardiopulmonary abnormality. .
== END 2017-01-07 01:00 | disposition home or self-care (01) ==
LOC: ED 23:15
DX: I25.118 Atherosclerotic heart disease of native coronary artery with other forms of angina pectoris (principal); I10 Essential (primary) hypertension; I48.0 Paroxysmal atrial fibrillation; Z79.01 Long term (current) use of anticoagulants; Z95.5 Presence of coronary angioplasty implant and graft
CPT/HCPCS: 36415; 80053; 83880; 84484; 85025; 85610; 93005